=== PATIENT | male | born 1930 | race Caucasian/White ===

== ENCOUNTER 2018-03-19 09:56 | Inpatient (IN) | payer MEDICARE ==
[~2018-03-19] VITALS: Ht 175.3 cm; Wt 79.5 kg
[2018-03-19 10:41] LABS: BASOPHILS ABSOLUTE AUTO 0.05 K/mm3 (0.00-0.23); BASOPHILS PERCENT AUTO 0 % (0-2); EOSINOPHILS ABSOLUTE AUTO 0.04 K/mm3 (0.00-0.68); EOSINOPHILS PERCENT AUTO 0 % (0-6); Hemoglobin 13.4 g/dL (13.5-17.5); IMMATURE GRAN ABSOLUTE AUTO 0.04 K/mm3 (0.00-0.10); IMMATURE GRAN PERCENT AUTO 0 % (0-1); LYMPHOCYTES ABSOLUTE AUTO 0.69 K/mm3 (0.84-5.20); LYMPHOCYTES PERCENT AUTO 6 % (21-46); MONOCYTES ABSOLUTE AUTO 1.11 K/mm3 (0.16-1.47); MONOCYTES PERCENT AUTO 9 % (4-13); Mean Corpuscular HGB 29.5 pg (26.0-34.0); Mean Corpuscular HGB Conc 32.7 g/dL (31.5-36.5); Mean Corpuscular Volume 90 fL (80-100); Mean Platelet Volume 10.1 fL (9.1-12.4); NEUTROPHILS ABSOLUTE AUTO 10.09 K/mm3 (1.96-9.15); NEUTROPHILS PERCENT AUTO 84 % (41-73); Platelet Count 271 K/mm3 (150-400); RDW Standard Deviation 42.7 fL (35.1-46.3); Red Blood Cell Count 4.55 M/mm3 (4.30-5.90); White Blood Cell Count 12.02 K/mm3 (4.00-11.30)
[2018-03-19 10:52] LABS: Albumin, Blood 2.7 g/dL (3.4-5.0); Albumin/Globulin Ratio 0.6 (0.8-1.8); Bilirubin, Total 1.6 mg/dL (0.1-1.0); Bun/Creatinine Ratio 16.9 (12.0-20.0); Calcium, Blood 9.2 mg/dL (8.5-10.1); Creatinine, Blood 1.36 mg/dL (0.60-1.20); Globulin, Blood 4.5 g/dL (2.2-4.0); Potassium, Blood 3.9 mmol/L (3.5-5.5); Total Protein, Blood 7.2 g/dL (6.4-8.2)
[2018-03-19 10:55] LABS: International Normalized Ratio 1.05; Prothrombin Time Results 10.8 Sec (9.7-11.5)
[2018-03-19] MEDS ORDERED: ASPI81CH PO (15:42)
[2018-03-19] MEDS ORDERED: Prinivil10 MG PO (15:42)
[2018-03-19] MEDS ORDERED: ATOR40TA PO (15:42)
--- NOTE | 2018-03-19 15:44 | NUR ---
03/19/18 1544 Ino Pérez History, Chart, Medications and Allergies reviewed before start of procedure.MONITOR INTACT WITH CONTINUOUS PULSE OXIMETRY AND INTERMITTENT BP.3-LEAD EKG REVIEWED WITH PHYSICIAN PRIOR TO START OF PROCEDURE.O2 VIA N/C INTACT THROUGHOUT SEDATION/PROCEDURE. Patient confirms NPO status and agrees with scheduled surgery.PATIENT DETERMINED TO BE ASA APPROPRIATE FOR PROPOFOL SEDATION PRIOR TO START OF PROCEDURE BY DR. BUTTS.
--- NOTE | 2018-03-19 23:42 | NUR ---
INTERVENTION PATIENT AND FAMILY AGREEABLE TO COLONOSCOPY TOMORROW. NG TUBE AND RECTAL TUBE PLACED PER DISCUSSION WITH DR. BUTTS. PATIENT AWARE AND AGREEABLE. TOLERATED PROCEDURES WELL. GOLYTELY BEING INSTILLED VIA NG TUBE. MILD DISCOMFORT NOTED BY PATIENT BUT QUICKLY PASSES. AUSCULTATED AND ASPIRATED TO VERIFY PLACEMENT.
[2018-03-20 05:20] LABS: BASOPHILS ABSOLUTE AUTO 0.04 K/mm3 (0.00-0.23); BASOPHILS PERCENT AUTO 1 % (0-2); EOSINOPHILS ABSOLUTE AUTO 0.01 K/mm3 (0.00-0.68); EOSINOPHILS PERCENT AUTO 0 % (0-6); Hematocrit 43.9 % (37.0-53.0); Hemoglobin 14.4 g/dL (13.5-17.5); IMMATURE GRAN ABSOLUTE AUTO 0.05 K/mm3 (0.00-0.10); IMMATURE GRAN PERCENT AUTO 1 % (0-1); LYMPHOCYTES ABSOLUTE AUTO 0.51 K/mm3 (0.84-5.20); LYMPHOCYTES PERCENT AUTO 8 % (21-46); MONOCYTES ABSOLUTE AUTO 0.07 K/mm3 (0.16-1.47); MONOCYTES PERCENT AUTO 1 % (4-13); Mean Corpuscular HGB 29.6 pg (26.0-34.0); Mean Corpuscular HGB Conc 32.8 g/dL (31.5-36.5); Mean Corpuscular Volume 90 fL (80-100); Mean Platelet Volume 9.9 fL (9.1-12.4); NEUTROPHILS ABSOLUTE AUTO 6.01 K/mm3 (1.96-9.15); NEUTROPHILS PERCENT AUTO 90 % (41-73); Platelet Count 252 K/mm3 (150-400); RDW Coefficient Variation 12.9 % (11.7-14.2); RDW Standard Deviation 42.5 fL (35.1-46.3); Red Blood Cell Count 4.86 M/mm3 (4.30-5.90); White Blood Cell Count 6.69 K/mm3 (4.00-11.30)
--- NOTE | 2018-03-20 05:23 | NUR ---
EVENT PATIENT WITH WHAT APPEARED TO BE ASPIRATION WITH CRACKLES IN THE UPPER AIRWAYS UPON AUSCULTATION AFTER VOMITTING AND HOLDING VOMIT IN MOUTH INSTEAD OF SPITTING IT INTO EMESIS BAG. TRIED TO ORIENT PATIENT MULTIPLE TIMES TO ALLOWING EMESIS TO LEAVE MOUTH BUT WOULD NOT WITHOUT EXCESSIVE PROMPTING. POSITIONED PATIENT WITH PILLOW BEHIND BACK AND AT 90 DEGREES TO MINIMIZE RISK. PATIENT ALSO NOTED TO BE PULLING AT NG TUBE BUT STAYED SECURED IN PLACE. SURGEON REQUESTS THAT NG STAY IN UNTIL SURGERY IN CASE THERE IS EXCESS STOOL ALONG INNER AGUIRRE. CALL TO HOSPITALIST TO REQUEST CHEST XRAY TO VERIFY IF ASPIRATION TOOK PLACE. PATIENT WHEELED TO XRAY FOR 2V CHEST AND UPON RETURN TO UNIT CRACKLES NOTED TO BE RESOLVED. SATURATIONS 83% AND RESPIRATIONS ELEVATED TO 48 UPON RETURN SO STARTED ON O2 AT 4L. STATISTICAL CLERK ADVERTISING ASKED TO RECHECK AFTER 30 MINUTES TO ENSURE IMPROVEMENT ABOVE INITIAL OF SATURATIONS GOING ABOVE 90%. WILL CONTINUE TO MONITOR.
--- NOTE | 2018-03-20 17:35 | NUR ---
SHIFT SUMMARY THE PATIENT PRESENTED THIS AM WITH A VEIW SCORE OF 5. THE PATIENT HADAN ELEVATED RATE IN PULSE, RESP AND TEMP. THE PATIENT'S DOCTOR WAS CALLED ABOUT THE SCORE AND THE CHARGE NURSE WAS INCLUDED IN THE CONVERSATION. THE PATIENT WAS PUT ON Q2 VITALS AND HAD HIS NG AND RECTAL TUBES REMOVED. THE PATIENT HAS IMPROVED THOUGTHOUT THE DAY AND IS NOW WNL ON VITALS AND IS A&O. THE PATIENT IS VISITING WITH HIS FAMILY AT THIS TIME, WILL CONTINUE TO MONITOR.
--- NOTE | 2018-03-21 04:13 | NUR ---
SHIFT SUMMARY PATIENT HAD NO ACUTE CHANGES OBSERVED DURING THE SHIFT. AXOX 3 WITH CONFUSION. VSS/AFEBRILE. PIV REMAINS INTACT. DENIES PAIN, SOB, AND N/V. NPO WITH ICE CHIPS AND WATER ONLY. ON 2L 02 NC. BED IN LOWEST POSITION. CALL LIGHT IN REACH. WILL CONTINUE TO MONITOR UNTIL DAY SHIFT NURSE ASSUMES CARE.
--- NOTE | 2018-03-21 14:02 | NUR ---
HE IS UP ON THE BSC RIGHT NOW. HE TRANSFERS WITH 1 ASSIST. HE WAS UP ONE TIME EARLIER AND PASSED WATERY BROWN STOOL. NO COMPLAINTS. HE IS NPO EXCEPT FOR WATER AND ICE. HE IS NOT SCHEDULED WITH DAY SURGERY. HE HAS BEEN SLEEPING.
[2018-03-21 16:29] LABS: BASOPHILS ABSOLUTE AUTO 0.02 K/mm3 (0.00-0.23); BASOPHILS PERCENT AUTO 0 % (0-2); EOSINOPHILS PERCENT AUTO 0 % (0-6); Hemoglobin 12.8 g/dL (13.5-17.5); IMMATURE GRAN ABSOLUTE AUTO 0.08 K/mm3 (0.00-0.10); IMMATURE GRAN PERCENT AUTO 1 % (0-1); LYMPHOCYTES ABSOLUTE AUTO 0.61 K/mm3 (0.84-5.20); LYMPHOCYTES PERCENT AUTO 5 % (21-46); MONOCYTES ABSOLUTE AUTO 0.91 K/mm3 (0.16-1.47); MONOCYTES PERCENT AUTO 7 % (4-13); Mean Corpuscular HGB 29.8 pg (26.0-34.0); Mean Corpuscular HGB Conc 32.8 g/dL (31.5-36.5); Mean Corpuscular Volume 91 fL (80-100); NEUTROPHILS ABSOLUTE AUTO 11.48 K/mm3 (1.96-9.15); NEUTROPHILS PERCENT AUTO 88 % (41-73); Platelet Count 201 K/mm3 (150-400); RDW Coefficient Variation 13.3 % (11.7-14.2); RDW Standard Deviation 44.2 fL (35.1-46.3); Red Blood Cell Count 4.29 M/mm3 (4.30-5.90)
[2018-03-21 16:56] LABS: Albumin, Blood 2.3 g/dL (3.4-5.0); Albumin/Globulin Ratio 0.6 (0.8-1.8); Bilirubin, Total 0.8 mg/dL (0.1-1.0); Bun/Creatinine Ratio 21.8 (12.0-20.0); Calcium, Blood 8.8 mg/dL (8.5-10.1); Creatinine, Blood 1.88 mg/dL (0.60-1.20); Globulin, Blood 4.1 g/dL (2.2-4.0); Potassium, Blood 3.5 mmol/L (3.5-5.5); Total Protein, Blood 6.4 g/dL (6.4-8.2)
--- NOTE | 2018-03-21 17:43 | NUR ---
HE HAS HAD 2 WATERY BROWN STOOLS TODAY WITHOUT OVERT SIGNS OF BLOOD. HE IS MILDLY CONFUSED. BED ALARM ON. FAMILY WAS HERE THIS AFTERNOON VISITING HIM AND TAKING CARE OF SOME NOTERIZED PAPERWORK WITH HIM. FACE IS FLUSHED. HIGHEST TEMP TODAY WAS 99.8. LAST TEMP 97. ROUNDED THIS AFTERNOON. LABS CHECKED AND 2 IVF'S ORDERED. THEY RUN CONCURRENTLY. NEW IV SITE STARTED. NO RESPIRATORY DISTRESS. NO ABDOMINAL COMPLAINTS. CT ABD IS ORDERED FOR HIM TOO.
--- NOTE | 2018-03-22 04:39 | NUR ---
BASKET GRADER SUMMARY NO ACUTE CHANGES THIS SHIFT. PT ALERT TO SELF AND KNOWS HES AT THE HOSPITAL BUT FORGETS WHAT [place] HE'S IN AND THOUGHT IT [place]. FOLLOWS DIRECTION AND IS PLEASANT. PT REMAINS NPO ASIDE FOR SOME WATER AND ICE CHIPS. PT TO HAVE ABD CT LATER TODAY. DR BUTTS CAME TO ROUND ON PT AT START OF SHIFT BUT NO FURTHER ORDERS GIVEN AT THIS TIME. VSS, WILL CONTINUE TO MONITOR.
[2018-03-22 04:53] LABS: BASOPHILS ABSOLUTE AUTO 0.03 K/mm3 (0.00-0.23); BASOPHILS PERCENT AUTO 0 % (0-2); EOSINOPHILS ABSOLUTE AUTO 0.09 K/mm3 (0.00-0.68); EOSINOPHILS PERCENT AUTO 1 % (0-6); Hematocrit 39.6 % (37.0-53.0); Hemoglobin 12.9 g/dL (13.5-17.5); IMMATURE GRAN ABSOLUTE AUTO 0.06 K/mm3 (0.00-0.10); IMMATURE GRAN PERCENT AUTO 1 % (0-1); LYMPHOCYTES ABSOLUTE AUTO 0.48 K/mm3 (0.84-5.20); LYMPHOCYTES PERCENT AUTO 5 % (21-46); MONOCYTES ABSOLUTE AUTO 0.75 K/mm3 (0.16-1.47); MONOCYTES PERCENT AUTO 7 % (4-13); Mean Corpuscular HGB 29.5 pg (26.0-34.0); Mean Corpuscular HGB Conc 32.6 g/dL (31.5-36.5); Mean Corpuscular Volume 91 fL (80-100); Mean Platelet Volume 10.5 fL (9.1-12.4); NEUTROPHILS ABSOLUTE AUTO 8.71 K/mm3 (1.96-9.15); NEUTROPHILS PERCENT AUTO 86 % (41-73); Platelet Count 178 K/mm3 (150-400); RDW Coefficient Variation 13.2 % (11.7-14.2); RDW Standard Deviation 43.7 fL (35.1-46.3); Red Blood Cell Count 4.37 M/mm3 (4.30-5.90); White Blood Cell Count 10.12 K/mm3 (4.00-11.30)
[2018-03-22 05:06] LABS: Albumin, Blood 2.2 g/dL (3.4-5.0); Albumin/Globulin Ratio 0.5 (0.8-1.8); Bilirubin, Total 0.9 mg/dL (0.1-1.0); Bun/Creatinine Ratio 25.8 (12.0-20.0); Calcium, Blood 8.6 mg/dL (8.5-10.1); Creatinine, Blood 1.55 mg/dL (0.60-1.20); Globulin, Blood 4.2 g/dL (2.2-4.0); Potassium, Blood 3.3 mmol/L (3.5-5.5); Total Protein, Blood 6.4 g/dL (6.4-8.2)
--- NOTE | 2018-03-22 13:02 | NUR ---
I HAVE SPOKEN WITH ON THE TELEPHONE X3 SO FAR TODAY REGARDING HIS CHANGE IN CONDITION, EACH TIME RECEIVING ORDERS. HIS PROBLEMS HAVE BEEN SHAKING CHILLS, FEVER, TACHYCARDIA, IRREGULAR PULSE AND TACHYPNEA. HE HAS RECEIVED 2 TYLENOL PO CRUSHED WHILE THE SPEECH THERAPIST WAS HERE FOR AN EVALUATION. HE IS SAFE FOR CRUSHED MED IN APPLESAUCE ONLY. NO WATER OR ICE CHIPS. DOESN'T WANT HIM TO HAVE ANYTHING SOLID OR APPLESAUCE THOUGH, SO HE WILL BE NPO UNTIL FURTHER NOTICE. THIS EVALUATION WAS DONE WHILE HE WAS FEBRILE. 2 IV ANTIBIOTICS HAVE BEEN GIVEN. 1 DOSE OF TORADOL WAS GIVEN. HE WILL START PPN THIS EVENING. RIGHT NOW CLINIMIX IS INFUSING ALONG WITH NS. AN EKG WAS DONE AND RESULTS (MACHINE INTERPRETATION) CALLED TO . BLOOD CULTURES WERE ALSO DRAWN. HE IS CURRENTLY IN RADIOLOGY FOR HIS ABD CT SCAN. VS ARE IMPROVING SLOWLY. RESPIRATIONS ARE STILL 36/MIN. O2 2L. SATS LOW TO MID 90'S. PULSE 106. HE HAS PVC'S. BP STABLE. LAST TEMP 100.3 ORALLY. HE WAS UNABLE TO FOLLOW SOME INSTRUCTIONS WHEN TEMP WAS 103 BUT BACK TO BASELINE WHEN FEVER BROKE.
--- NOTE | 2018-03-22 16:33 | NUR ---
HE HAS REMAINED AFEBRILE THIS AFTERNOON AND NAPPING. HIS DAUGHTER IS AT THE BEDSIDE. CT IS BASICALLY NEGATIVE. PULSE AND RESP RATE ALSO DECREASED. BP REMAINS STABLE. WHEN PPN STARTS THIS EVENING, I WILL DC THE CLINIMIX AND REDUCE THE NS RATE TO 50MLS/HR PER MD ORDER. TELE NSR WITH PVC'S. HE REMAINS NPO ALSO. HIS INCONTINENT BM THIS MORNING WAS BROWN. NO OVERT SIGNS OF BLOOD.
--- NOTE | 2018-03-23 05:23 | NUR ---
PLASTIC INSTALLER SUMMARY NO ACUTE CHANGES THIS SHIFT. PT AFEBRILE, HR HAS BEEN SR WITH A 1ST DEG BLOCK IN THE 80-90'S THROUGH THE SHIFT. PT SEEMS AT BASE MENTATION, CONFUSED AT TIMES BUT ANSWERS QUESTIONS APPROPRIATELY AND FOLLOWS DIRECTION. FAMILY WAS HERE AT START OF SHIFT AND WAS ASKING ABOUT THE STATUS OF PT'S DIET ORDER AND SPEECH THERAPY EVALUATION. INFORMED FAMILY THAT PT IS NPO AT THIS TIME BUT ST WILL REEVALUATE PT LATER TODAY NOW THAT IS MENTATION HAS IMPROVED. ALSO INFORMED FAMILY THAT PT IS STILL RECIEVING IV NUTRITION EVEN THOUGH HE IS NPO. PT HAS BEEN INCONTINENT AT TIMES THROUGH THE NIGHT AND HAS USED THE URINAL WITH ASSISTANCE ON OCCASION. VSS, WILL CONTINUE TO MONITOR.
[2018-03-23 05:50] LABS: Percent Saturation 13.8 % (20.0-50.0)
[2018-03-23 05:52] LABS: Alanine Aminotransfer (ALT/SGP 32 U/L (12-78); Albumin, Blood 1.9 g/dL (3.4-5.0); Albumin/Globulin Ratio 0.5 (0.8-1.8); Alk Phos 111 U/L (50-136); Anion Gap 7 mmol/L (6-16); Aspartate Aminotrans (AST/SGOT 54 U/L (12-37); Bilirubin, Total 0.6 mg/dL (0.1-1.0); Blood Urea Nitrogen 40 mg/dL (8-24); Bun/Creatinine Ratio 28.8 (12.0-20.0); CO2, Blood 28 mmol/L (21-32); Calcium, Blood 8.4 mg/dL (8.5-10.1); Chloride, Blood 103 mmol/L (98-108); Creatinine, Blood 1.39 mg/dL (0.60-1.20); Globulin, Blood 3.7 g/dL (2.2-4.0); Glomerular Filtration Rate 51 (60-); Glucose, Blood 125 mg/dL (70-99); Magnesium, Blood 2.5 mg/dL (1.6-2.4); Phosphorus, Blood 1.9 mg/dL (2.5-4.9); Potassium, Blood 3.4 mmol/L (3.5-5.5); Sodium, Blood 138 mmol/L (136-145); Total Protein, Blood 5.6 g/dL (6.4-8.2); Triglycerides 131 mg/dL (30-160)
--- NOTE | 2018-03-23 06:41 | NUR ---
NOTICED PT RESPIRATIONS WERE IN THE HIGH AT 32/MINUTE. PT ALSO REPORTED FEELING WARM. ORAL TEMP SHOWED 101.0 DEGREES. CALLED MAGISTRATE ASSISTANT AT APPROXIMATELY 0630 TO SEE IF ANY CHANGES IN HR. STORE DETECTIVE SAID AT APPROXIMATELY 0530 PT HR TOUCHED INTO 130'S THEN DOWN TO 110'S FOR 15-20 MINUTES AND THEN RETURNED TO 80-90'S. THIS RN WAS NOT NOTIFIED OF CHANGE IN HR WHEN IT ACTUALLY OCCURED. GAVE PT RECTAL TYLENOL TO HELP WITH FEVER. WILL REPORT TO DAY RN ASSUMING CARE.
[2018-03-23 09:54] LABS: BASOPHILS ABSOLUTE AUTO 0.02 K/mm3 (0.00-0.23); BASOPHILS PERCENT AUTO 0 % (0-2); EOSINOPHILS ABSOLUTE AUTO 0.09 K/mm3 (0.00-0.68); EOSINOPHILS PERCENT AUTO 1 % (0-6); IMMATURE GRAN ABSOLUTE AUTO 0.05 K/mm3 (0.00-0.10); IMMATURE GRAN PERCENT AUTO 1 % (0-1); LYMPHOCYTES ABSOLUTE AUTO 0.59 K/mm3 (0.84-5.20); LYMPHOCYTES PERCENT AUTO 6 % (21-46); MONOCYTES ABSOLUTE AUTO 0.56 K/mm3 (0.16-1.47); MONOCYTES PERCENT AUTO 6 % (4-13); Mean Corpuscular HGB 29.9 pg (26.0-34.0); Mean Corpuscular HGB Conc 32.4 g/dL (31.5-36.5); Mean Corpuscular Volume 92 fL (80-100); Mean Platelet Volume 11.7 fL (9.1-12.4); NEUTROPHILS ABSOLUTE AUTO 7.98 K/mm3 (1.96-9.15); NEUTROPHILS PERCENT AUTO 86 % (41-73); Platelet Count 145 K/mm3 (150-400); RDW Coefficient Variation 13.2 % (11.7-14.2); RDW Standard Deviation 44.7 fL (35.1-46.3); Red Blood Cell Count 4.02 M/mm3 (4.30-5.90); White Blood Cell Count 9.29 K/mm3 (4.00-11.30)
--- NOTE | 2018-03-23 18:29 | NUR ---
PATIENT A/O TO SELF AND FAMILY AND SOMETIMES PLACE. UP WITH FWW AND 2 ASSIST TO CHAIR. FEVER THIS AM THAT WAS CONTROLLED WITH RECTAL TYLENOL, OTHERWISE VSS. TELE D/C'D. ADVANCED TO MECHANICAL SOFT DIET. PPN RUNNING UNTIL PO INTAKE IMPROVES. NO BOWEL MOVEMENTS THIS SHIFT. DR. BUTTS AT BEDSIDE TODAY AND NO LONGER PLANS TO DO A COLONOSCOPY. FALL PRECAUTIONS IN PLACE. DENIES ANY PAIN. CALM AND COOPERATIVE WITH CARE.
[2018-03-24 05:53] LABS: BASOPHILS ABSOLUTE AUTO 0.03 K/mm3 (0.00-0.23); BASOPHILS PERCENT AUTO 0 % (0-2); EOSINOPHILS ABSOLUTE AUTO 0.21 K/mm3 (0.00-0.68); EOSINOPHILS PERCENT AUTO 2 % (0-6); Hemoglobin 11.7 g/dL (13.5-17.5); IMMATURE GRAN ABSOLUTE AUTO 0.04 K/mm3 (0.00-0.10); IMMATURE GRAN PERCENT AUTO 0 % (0-1); LYMPHOCYTES ABSOLUTE AUTO 0.95 K/mm3 (0.84-5.20); LYMPHOCYTES PERCENT AUTO 9 % (21-46); MONOCYTES ABSOLUTE AUTO 1.33 K/mm3 (0.16-1.47); MONOCYTES PERCENT AUTO 12 % (4-13); Mean Corpuscular HGB 29.4 pg (26.0-34.0); Mean Corpuscular HGB Conc 32.5 g/dL (31.5-36.5); Mean Corpuscular Volume 91 fL (80-100); Mean Platelet Volume 11.1 fL (9.1-12.4); NEUTROPHILS ABSOLUTE AUTO 8.53 K/mm3 (1.96-9.15); NEUTROPHILS PERCENT AUTO 77 % (41-73); Platelet Count 146 K/mm3 (150-400); RDW Coefficient Variation 13.2 % (11.7-14.2); RDW Standard Deviation 43.6 fL (35.1-46.3); Red Blood Cell Count 3.98 M/mm3 (4.30-5.90); White Blood Cell Count 11.09 K/mm3 (4.00-11.30)
[2018-03-24 06:14] LABS: Albumin/Globulin Ratio 0.5 (0.8-1.8); Bilirubin, Total 0.5 mg/dL (0.1-1.0); Bun/Creatinine Ratio 27.5 (12.0-20.0); Calcium, Blood 8.4 mg/dL (8.5-10.1); Creatinine, Blood 1.42 mg/dL (0.60-1.20); Globulin, Blood 3.8 g/dL (2.2-4.0); Magnesium, Blood 2.5 mg/dL (1.6-2.4); Phosphorus, Blood 1.4 mg/dL (2.5-4.9); Potassium, Blood 3.7 mmol/L (3.5-5.5); Total Protein, Blood 5.8 g/dL (6.4-8.2)
--- NOTE | 2018-03-24 06:41 | NUR ---
INSURANCE TERRITORY MANAGER SUMMARY NO ACUTE CHANGES THIS SHIFT. PT AAOX3, PLEASANT AND COOPERATIVE BUT FORGETFUL AT TIMES. USES THE CALL LIGHT APPROPRIATELY FOR ASSISTANCE WITH THE URINAL. PT HAS HAD INCREASED FREQUENCY WHEN URINATING TONIGHT, URINATING 50-100 MLS EVERY HOUR OR TWO. URINE IS DARK GEORGE BUT DOES NOT HAVE A FOUL ODOR. PT INCONTINENT AT TIMES TOO. PT VITALS STABLE THROUGH THE NIGHT UNTIL EARLY THIS AM HAD A SLIGHT TEMP THAT WAS RELIEVED WITH TYLENOL. THIS IS THE THIRD MORNING IN A ROW WHERE PT HAS A FEVER AT THE END OF SHIFT. VSS ASIDE FROM THE BRIEF FEVER. PT HAS BEEN TOLERATING PO NECTAR THICK FLUIDS WELL. WILL CONTINUE TO MONITOR.
--- NOTE | 2018-03-24 16:04 | NUR ---
PT HAD HIGH RESP RATE THAT WAS NOT PRESENT ON INITIALL ASSESSMENT. VITALS SHOW ELEVATED BP TEMP WNL HR WNL. PT DENIES PAIN SAYS HE IS JUST COLD. RESP RATE 42. CALLED ALLAN GOMES NOT BREATHING Tx WILL HELP AT АЛЕКСАНДР TIME. CALLED DR BELTRAN NEW ORDER FOR TORADOL AND A CHEST XRAY.
[2018-03-24 17:18] LABS: Source, Urine Clean Catch
[2018-03-24 17:22] LABS: Appearance, Urine Hazy (Clear); Bilirubin, Urine Neg (Neg); Blood, Urine 1+ (Neg); Color, Urine Yellow (P-Yellow); Glucose Qualitative, Urine Neg (Neg); Ketones, Urine Neg (Neg); Leukocyte Esterase, Urine 3+ (Neg); Nitrite, Urine Neg (Neg); Protein, Urine Neg (Neg); Urobilinogen, Urine NORM (Normal)
[2018-03-24 17:28] LABS: Squamous Epithelial Cells Rare /hpf (Few)
[2018-03-24 17:29] LABS: White Blood Cells, Urine 25-50 /hpf (0-5)
[2018-03-24 17:30] LABS: Bacteria Rare /hpf
--- NOTE | 2018-03-24 18:49 | NUR ---
SHIFT SUMMARY- PT HAD AN ACUTE ONSET OF RESPIRATORY DISTRESS SEE PREVIOUS NOTES FOR DETAILS. MEDICATED WITH LASIX. PT IS IN CONTINENT AND HAS URINATED FREQUENLY SINCE THE ADMINISTRATION OF IV LASIX. PT IS VOIDING UNMEASURED VOIDS NEARLY Q 15-30 MIN SINCE IV LASIX ADMINISTRATION. URINE SAMPLE OBTAINED AND SENT TO THE LAB. VOIDS ARE FREQUENT AND LARGE QUANTITY. PT ALERT AND ORIENTED, HAS THE CALL LIGHT BUT DOES NOT USE IT, HE YELLS OUT FOR STAFF TO HELP HIM WHEN HE NEEDS IT.
--- NOTE | 2018-03-25 01:32 | NUR ---
LOOSE STOOLS PT HAVING LOOSE STOOLS, LIGHT BROWN STOOLS AND HAS BEEN ON ANTIBIOTICS X2 DAYS. SUSPECTED C DIFF. PLACED CALL TO HOSPITALIST, DR THOMAS, WHO DOES NOT ORDER A STOOL SAMPLE TO BE SENT TO LAB FOR C DIFF R/O BECAUSE PT IS NOT HAVING OTHER SYMPTOMS AND IT HAS NOT PROLONGED FOR 72 HOURS.
[2018-03-25 05:48] LABS: BASOPHILS ABSOLUTE AUTO 0.03 K/mm3 (0.00-0.23); BASOPHILS PERCENT AUTO 0 % (0-2); EOSINOPHILS ABSOLUTE AUTO 0.36 K/mm3 (0.00-0.68); EOSINOPHILS PERCENT AUTO 4 % (0-6); Hematocrit 34.8 % (37.0-53.0); Hemoglobin 11.2 g/dL (13.5-17.5); IMMATURE GRAN ABSOLUTE AUTO 0.07 K/mm3 (0.00-0.10); IMMATURE GRAN PERCENT AUTO 1 % (0-1); LYMPHOCYTES ABSOLUTE AUTO 0.98 K/mm3 (0.84-5.20); LYMPHOCYTES PERCENT AUTO 10 % (21-46); MONOCYTES PERCENT AUTO 14 % (4-13); Mean Corpuscular HGB Conc 32.2 g/dL (31.5-36.5); Mean Corpuscular Volume 90 fL (80-100); NEUTROPHILS ABSOLUTE AUTO 6.91 K/mm3 (1.96-9.15); NEUTROPHILS PERCENT AUTO 72 % (41-73); Platelet Count 155 K/mm3 (150-400); RDW Coefficient Variation 13.3 % (11.7-14.2); RDW Standard Deviation 43.9 fL (35.1-46.3); Red Blood Cell Count 3.86 M/mm3 (4.30-5.90); White Blood Cell Count 9.65 K/mm3 (4.00-11.30)
[2018-03-25 06:30] LABS: Albumin, Blood 1.9 g/dL (3.4-5.0); Albumin/Globulin Ratio 0.5 (0.8-1.8); Bilirubin, Total 0.5 mg/dL (0.1-1.0); Bun/Creatinine Ratio 23.6 (12.0-20.0); Calcium, Blood 8.4 mg/dL (8.5-10.1); Creatinine, Blood 1.4 mg/dL (0.60-1.20); Globulin, Blood 3.6 g/dL (2.2-4.0); Magnesium, Blood 2.3 mg/dL (1.6-2.4); Potassium, Blood 3.7 mmol/L (3.5-5.5); Total Protein, Blood 5.5 g/dL (6.4-8.2)
--- NOTE | 2018-03-25 07:06 | NUR ---
SHIFT SUMMARY: AT START OF SHIFT, PT WAS DROWSY, NOT SPEAKING MUCH, AND INCONTINENT. THIS AM, PT WAS MORE ALERT (TO SELF, FAMILY, SURROUNDINGS, FOLLOWING COMMANDS, ANSWER Q'S, TIME/DATE) AND HAVING CONVERSATION, REQUESTING URINAL. FAMILY EXPRESSED CONCERN LAST NIGHT ABOUT NOT RECIEVING ENOUGH COMMUNICATIION. THEY REPORT FEELING "OUT OF THE LOOP." AT THIS TIME, I SAT c DAUGHTER (WHO IS POA) AND PT AND ANSWERED ALL THE DAUGHTER'S QUESTIONS AND RESPONDED TO HER CONCERNS. AT FIRST, FAMILY WAS DEFENSIVE AND HOSTILE BUT A SUCCESSFUL CONVERSATION LED TO EASE THESE FEELINGS INTO POSITIVE ONES. FAMLY REPORTS FEELING MORE "IN THE LOOP". ATTEMPTED TO WEAN PT DOWN TO 1L VIA NC THIS AM, HOWEVER PT COULD NOT TOLERATE AND REPORTED SOB. PT REMAINS ON 2L VIA NC. RR IN LOW 20'S. 1 LIQUID BM, CALLED DOC FOR C DIFF SPECIMEN AND DOC DECLINED, STATING THIS MUST BE OCCURING FOR 72 HRS AND/OR PT MUST HAVE OTHER SYMPTOMS. PT DOES NOT PORTRAY OTHER SYMPTOMS, SUCH CRAMPING. SEE OTHER NOTE. NO OTHER CHANGES TO REPORT THIS SHIFT. WILL CONT TO MONITOR AND PROVIDE CARE UNTIL PRESUMED BY ONCOMING RN.
--- NOTE | 2018-03-25 14:24 | NUR ---
Initial Visit: Palliative consult for AD/POLST and advanced care planning. Pt resting in bed upon arrival. Dr Bledsoe present giving Pt and family report of Pt's condition and plan of care. Pt's daughter Meghan and another family member present. Meghan reports she is Pt's POA. Pt reports he believes in GOD but has no particular maria r. Meghan reports that her and Pt recently moved to [place] from [place] approximately 2 months ago and are living in the same house hold. Meghan reports that Pt's her mother past away approximately 1 month ago here at [facility] from kidney failure. Pt is A&O X3 and is unable to give current year. Listened as Pt and daughter discussed how important and close their family are and how devastating it was to loose Pt's (Diamond). Discussion was made about goals of Pt with his disease process. Discussed Advance Directive and POLST with Pt and Meghan and both agree with the importance of being prepared. Meghan reports that she and other family members will discuss goals with Pt and complete forms. [facility] palliative care will be available if any assistance is needed in completing forms. Andreina expresses concerns about communication between staff and her in keeping her updated with any changes in Pt condition. She also would like a physical therapy evaluation to see if Pt would benefit from physical therapy to come to Pt's home. Spoke with Dr Bledsoe and she reports plan is for an echo and ultrasound. If results of testing are negative Pt may possibly be D/C in a couple of days. Spoke with Pt's nurse and she reports the Pt has shown significant improvement today. PPN has been D/C and Pt is eating on his own. Pt has improved with transfers and ambulation requiring 1 person assist instead of 2 person. Pt is also more alert today. Nurse reports no concerns at this time. Plan: Obtain POLST and Advance Directive when completed. Physical Therapy already working with Pt and will collaberate whether Pt would benefite from home physical therapy. Instructions on Pt's white board for staff to contact Agnes for change in condition and Agnes will call for updates.
--- NOTE | 2018-03-25 15:01 | NUR ---
Echocardiogram completed.
--- NOTE | 2018-03-25 18:20 | NUR ---
SHIFT SUMMARY- PLACED A RECLINER IN THE PT ROOM. PT HAS BEEN UP AND INTO THE CHAIR T/O THE SHIFT FOR ALL MEALS, HE FEEDS HIMSELF AND GOES BACK TO BED SHORTLY AFTER. PT IS A 1P SBA TRANSFER WITH A FWW AND GAIT BELT. PT HAS SOME STRESS INCONTINENCE AND URGENCY. RENAL ULTRASOUND WITH BLADDER WAS DONE AND PT BLADDER ONLY HAD 25ML IN IT, SO PT NOT RETAINING, URINE IS DARK BROWN, PT URINATES FREQUENTLY AND SMALL AMOUNTS 50-100ML PER VOID. PT CAN USE THE URINAL WITH ASSISTANCE. PT IS FAR MORE ALERT TODAY AND TALKATIVE. PT FAMILY WAS IN TODAY AND SPOKE WITH PALLIATIVE CARE RN [place]. THEY ARE CURRENTLY UP TO DATE ON ALL PT CARE NEEDS AND PLANS AND ISSUES. PALLIATIVE CARE WILL BE FOLLOWING. FAMILY IS AWARE IF THEY WANT AN UPDATE THEY NEED TO CALL AND ASK, THEY HAVE REQUESTED THAT THEY BE CALLED IF AN ISSUE ARRISES OR THERE IS A CHANGE IN PT STATUS. PT IS CURRENTLY UP IN THE RECLINER EATING DINNER, CALL LIGHT IN REACH, PT DOES NOT USE IT, HE TENDS TO CALL OUT WHEN STAFF GO BY.
--- NOTE | 2018-03-26 01:03 | NUR ---
PT WAS MILDLY ANXIOUS AND YELLING "HELLO." STATES THAT HE WANTS TO CALL HIS DAUGHTER AND WANTS HER TO COME OVER. PT ALSO STATES " I JUST DON'T FEEL RIGHT." VS TAKEN. BP 152/89, VA 90, TEMP 99.3, 95% ON 2L NC, RR 18. DENIES CHEST PAIN, N/V, AND SOB. NO OTHER COMPLAINTS.
[2018-03-26 05:21] LABS: BASOPHILS ABSOLUTE AUTO 0.03 K/mm3 (0.00-0.23); BASOPHILS PERCENT AUTO 0 % (0-2); EOSINOPHILS ABSOLUTE AUTO 0.24 K/mm3 (0.00-0.68); EOSINOPHILS PERCENT AUTO 2 % (0-6); Hematocrit 38.8 % (37.0-53.0); Hemoglobin 12.7 g/dL (13.5-17.5); IMMATURE GRAN ABSOLUTE AUTO 0.06 K/mm3 (0.00-0.10); IMMATURE GRAN PERCENT AUTO 1 % (0-1); LYMPHOCYTES ABSOLUTE AUTO 1.09 K/mm3 (0.84-5.20); LYMPHOCYTES PERCENT AUTO 11 % (21-46); MONOCYTES ABSOLUTE AUTO 1.12 K/mm3 (0.16-1.47); MONOCYTES PERCENT AUTO 11 % (4-13); Mean Corpuscular HGB 29.1 pg (26.0-34.0); Mean Corpuscular HGB Conc 32.7 g/dL (31.5-36.5); Mean Corpuscular Volume 89 fL (80-100); Mean Platelet Volume 9.9 fL (9.1-12.4); NEUTROPHILS ABSOLUTE AUTO 7.34 K/mm3 (1.96-9.15); NEUTROPHILS PERCENT AUTO 74 % (41-73); Platelet Count 186 K/mm3 (150-400); RDW Coefficient Variation 13.3 % (11.7-14.2); RDW Standard Deviation 43.2 fL (35.1-46.3); Red Blood Cell Count 4.36 M/mm3 (4.30-5.90); White Blood Cell Count 9.88 K/mm3 (4.00-11.30)
[2018-03-26 05:41] LABS: Bun/Creatinine Ratio 21.5 (12.0-20.0); Calcium, Blood 8.6 mg/dL (8.5-10.1); Creatinine, Blood 1.35 mg/dL (0.60-1.20); Potassium, Blood 3.7 mmol/L (3.5-5.5)
--- NOTE | 2018-03-26 07:27 | NUR ---
SHIFT SUMMARY PO ATIVAN AND IV LASIX GIVEN PER DR. LYLES'S ORDER. PT CALMED DOWN AND STATES FEELING BETTER. DAUGHTER CAME AND STAYED WITH PT T/O THE NIGHT. USED URINAL TO VOID AND EPISODES OF INCONTINENCE. TYLENOL GIVEN FOR ELEVATED TEMP. TEMP IMPROVED. REPORT GIVEN TO DAY RN.
--- NOTE | 2018-03-26 17:09 | NUR ---
SHIFT SUMMARY CICI WAS ORIENTED TO SELF AND SOMEWHAT TO SITUATION AND ORIENTED TO FAMILY. DECLINED GETTING OOB FOR BREAKFAST AND LUNCH BUT GOT UP WITH OT FOR DINNER WITH A01. VERY LETHARGIC AND TIRED THIS SHIFT. PER DAUGHTER, HE WAS UP EVERY 5-10 MINUTES ALL NIGHT DUE TO IV LASIX BEING GIVEN OVER NOC SHIFT. CONDOM CATH APPLIED FOR FIRST HALF OF SHIFT, BUT NOT STAYING IN PLACE. PT INCONTINENT AFTER THIS. TOOK PILLS WHOLE IN APPLESAUCE, REQUIRING ASSISTANCE FOR MEALS. ON 2L O2. DENIES PAIN. BUTTOCKS AND COCCYX RED, MEPILEX APPLIED AND Q2 TURNS PERFORMED.
--- NOTE | 2018-03-26 19:22 | NUR ---
TACHYPNEA TODAY AT [address] GUEVARA INFORMING HER THAT PT RR HAS BEEN IN THE 20S ALL DAY, PTS BREATHING IS VERY SHALLOW. LUNGS COARSE. ASKED FOR CXR. DR GUEVARA DOESN'T WANT TO DO CXR AT THIS TIME, PREFERS TO GIVE ANOTHER OT DOSE OF IV LASIX. IV LASIX GIVEN AND CONDOM CATH APPLIED TO HELP INCREASE AMOUNT OF REST PT IS ABLE TO GET
[2018-03-27 05:39] LABS: Bun/Creatinine Ratio 20.3 (12.0-20.0); Calcium, Blood 8.5 mg/dL (8.5-10.1); Creatinine, Blood 1.43 mg/dL (0.60-1.20); Potassium, Blood 4.1 mmol/L (3.5-5.5)
--- NOTE | 2018-03-27 07:29 | NUR ---
SHIFT SUMMARY: PT SLEPT T/O THE NIGHT, REPORTS THIS IS THE MOST SLEEP HE HAS GOTTEN IN A WHILE. PLEASANTLY CONFUSED, FORGETFUL. ON 2L VIA NC, RESPIRATIONS STILL TACHY c NO IMPROVEMENT AFTER LASIX ADMINISTRATION. CONDOM CATH IN PLACE D/T TO FREQUENCY AND INCONTINENCE. OUTPUT OF 1,000ML. PT HAS HAD POOR APPETITE T/O THE DAY, HOWEVER HE DOES DRINK TWO ENSURES THIS SHIFT. Q2H TURNS PERFORMED. SCDs ON FOR DVT PROPHYLAXIS. FAMILY CALLED LAST NIGHT AND IS REQUESTING ANOTHER MEETING c DR. GUEVARA TO UPDATE FAMILY ON PT STATUS, THEY ARE FEELING LEFT OUT OF THE LOOP AGAIN. WILL PASS THIS ON TO DAYSHIFT RN.
[2018-03-27 10:48] LABS: Source, Urine Clean Catch
[2018-03-27 10:59] LABS: Bilirubin, Urine Neg (Neg); Blood, Urine 3+ (Neg); Glucose Qualitative, Urine Neg (Neg); Ketones, Urine 1+ (Neg); Leukocyte Esterase, Urine 3+ (Neg); Nitrite, Urine Neg (Neg); Protein, Urine 2+ (Neg); Specific Gravity, Urine 1.005 (1.003-1.022); Urobilinogen, Urine NORM (Normal)
[2018-03-27 11:17] LABS: Color, Urine Yellow (P-Yellow)
[2018-03-27 11:18] LABS: Appearance, Urine Cloudy (Clear)
[2018-03-27 11:20] LABS: White Blood Cells, Urine TNTC /hpf (0-5)
[2018-03-27 11:21] LABS: Bacteria Mod /hpf; Mucus Mod (0-Heavy); Red Blood Cells, Urine 50-100 /hpf (0-2)
[2018-03-27 11:22] LABS: Squamous Epithelial Cells Few /hpf (Few)
--- NOTE | 2018-03-27 16:19 | NUR ---
SHIFT SUMMARY PT HAS HAD NO ACUTE CHANGES THIS SHIFT, NO COMPLAINTS OF ANY KIND. PT APPEARS TO BE SLEEPING AT THIS TIME, WILL CONT TO MONITOR UNTIL REPORT GIVEN TO RANDEE RN.
[2018-03-28 05:05] LABS: BASOPHILS ABSOLUTE AUTO 0.04 K/mm3 (0.00-0.23); BASOPHILS PERCENT AUTO 0 % (0-2); EOSINOPHILS ABSOLUTE AUTO 0.13 K/mm3 (0.00-0.68); EOSINOPHILS PERCENT AUTO 1 % (0-6); Hematocrit 36.9 % (37.0-53.0); IMMATURE GRAN ABSOLUTE AUTO 0.07 K/mm3 (0.00-0.10); IMMATURE GRAN PERCENT AUTO 1 % (0-1); LYMPHOCYTES ABSOLUTE AUTO 1.32 K/mm3 (0.84-5.20); LYMPHOCYTES PERCENT AUTO 11 % (21-46); MONOCYTES ABSOLUTE AUTO 1.01 K/mm3 (0.16-1.47); MONOCYTES PERCENT AUTO 8 % (4-13); Mean Corpuscular HGB 29.3 pg (26.0-34.0); Mean Corpuscular HGB Conc 32.5 g/dL (31.5-36.5); Mean Corpuscular Volume 90 fL (80-100); Mean Platelet Volume 9.8 fL (9.1-12.4); NEUTROPHILS ABSOLUTE AUTO 9.52 K/mm3 (1.96-9.15); NEUTROPHILS PERCENT AUTO 79 % (41-73); Platelet Count 253 K/mm3 (150-400); RDW Coefficient Variation 13.5 % (11.7-14.2); Red Blood Cell Count 4.09 M/mm3 (4.30-5.90); White Blood Cell Count 12.09 K/mm3 (4.00-11.30)
[2018-03-28 05:35] LABS: Albumin/Globulin Ratio 0.5 (0.8-1.8); Bilirubin, Total 0.9 mg/dL (0.1-1.0); Bun/Creatinine Ratio 23.3 (12.0-20.0); Calcium, Blood 8.5 mg/dL (8.5-10.1); Creatinine, Blood 1.5 mg/dL (0.60-1.20); Globulin, Blood 4.1 g/dL (2.2-4.0); Potassium, Blood 4.2 mmol/L (3.5-5.5); Total Protein, Blood 6.1 g/dL (6.4-8.2)
--- NOTE | 2018-03-28 06:45 | NUR ---
SHIFT SUMMARY PT SLEPT WELL T/O NIGHT. ALERT TO SELF & FAMILY. ANSWERS YES/NO QUESTIONS APPROPRIATELY & FOLLOWS DIRECTIONS. DENIES PAIN, SOB OR N/V. MEDICATED 2X W/TYLENOL PER ORDERS FOR MILD TEMP RANGING 99-100.2. FAMILY REPORTED THAT PT ISN'T EATING WELL USUAL, PT REPORTS THIS IS DUE TO NOT FEELING WELL & BEING TIRED. FAMILY INFORMED ME PT HAS FREQUENCY/INCONT W/URINE & A CONDOM CATH WAS PLACED FOR THE NIGHT, PATENT & DRAINING CLEAR ORANGE URINE. CALL LIGHT IS IN REACH & BED IS IN LOWEST POSITION.
[2018-03-28] MEDS ORDERED: ACET325 PO (11:01)
[2018-03-28] MEDS ORDERED: AMLO5 PO (11:03)
[2018-03-28] MEDS ORDERED: FURO20 PO (11:07)
[2018-03-28] MEDS ORDERED: LEVO750 (11:09)
[2018-03-28] MEDS ORDERED: TAMS.4ER PO (11:10)
--- NOTE | 2018-03-28 18:24 | NUR ---
SHIFT SUMMARY/DC PT HAS HAD NO ACUTE CHANGES THIS SHIFT, NO COMPLAINTS OF ANY KIND. REVIEWED DC INSTRUCTIONS & SCHED APPT W/DAUGHTER WHO VERBALIZED UNDERSTANDING. PT WAS TRANSPORTED VIA W/C TO [place] IN PRIVATE VEHICLE @ 1815.
== END 2018-03-28 18:10 | disposition home or self-care (01) | DRG 377 ==
LOC: ER 09:56 → MEDS 09:57 → ENPENDDIS 03-28 11:13 → MEDS 03-28 18:10
PROVIDERS: Emergency Medicine; Internal Medicine; Internal Medicine Gastroenterology; ADMIT Hospitalist
PROC: 0DJ08ZZ Inspection of Upper Intestinal Tract, Via Natural or Artificial Opening Endoscopic (ICD-10-PCS; principal; 2018-03-19 15:45)
DX: K92.1 Melena (principal); I50.43 Acute on chronic combined systolic (congestive) and diastolic (congestive) heart failure; T17.898A Other foreign object in other parts of respiratory tract causing other injury, initial encounter; E46 Unspecified protein-calorie malnutrition; I11.0 Hypertensive heart disease with heart failure; F03.90 Unspecified dementia, unspecified severity, without behavioral disturbance, psychotic disturbance, mood disturbance, and anxiety; N40.0 Benign prostatic hyperplasia without lower urinary tract symptoms; Z79.82 Long term (current) use of aspirin; R50.9 Fever, unspecified
CPT/HCPCS: 36415; 71045; 71046; 74176; 76770; 80048; 80053; 81001; 82272; 82728; 82947; 83540; 83550; 83605; 83735; 83880; 84100; 84478; 85025; 85610; 85730; 86850; 86900; 86901; 87040; 87077; 87086; 87186; 92526; 92610; 93005; 93010; 93306; 94640; 94760; 94761; 96374; 97110; 97116; 97162; 97530; 99285-25; C9113; G8978; G8979; G8996; G8997; J0696; J1885; J1940; J7030; J7120; J7626

== ENCOUNTER 2018-04-03 09:18 | Observation (INO) | payer MEDICARE ==
[~2018-04-03] VITALS: Ht 172.7 cm; Wt 75.4 kg
[~2018-04-03 09:18] MED LIST: ACET325 PO; AMLO5 PO; ASPI81CH PO; ATOR40TA PO; FURO20 PO; LEVO750; Prinivil10 MG PO; TAMS.4ER PO
[2018-04-03 09:39] LABS: BASOPHILS ABSOLUTE AUTO 0.07 K/mm3 (0.00-0.23); BASOPHILS PERCENT AUTO 1 % (0-2); EOSINOPHILS ABSOLUTE AUTO 0.15 K/mm3 (0.00-0.68); EOSINOPHILS PERCENT AUTO 2 % (0-6); Hemoglobin 13.3 g/dL (13.5-17.5); IMMATURE GRAN ABSOLUTE AUTO 0.04 K/mm3 (0.00-0.10); IMMATURE GRAN PERCENT AUTO 0 % (0-1); LYMPHOCYTES ABSOLUTE AUTO 1.58 K/mm3 (0.84-5.20); LYMPHOCYTES PERCENT AUTO 15 % (21-46); MONOCYTES ABSOLUTE AUTO 0.82 K/mm3 (0.16-1.47); MONOCYTES PERCENT AUTO 8 % (4-13); Mean Corpuscular HGB 29.2 pg (26.0-34.0); Mean Corpuscular HGB Conc 31.7 g/dL (31.5-36.5); Mean Corpuscular Volume 92 fL (80-100); Mean Platelet Volume 9.4 fL (9.1-12.4); NEUTROPHILS ABSOLUTE AUTO 7.58 K/mm3 (1.96-9.15); NEUTROPHILS PERCENT AUTO 74 % (41-73); Platelet Count 479 K/mm3 (150-400); RDW Coefficient Variation 13.7 % (11.7-14.2); RDW Standard Deviation 46.4 fL (35.1-46.3); Red Blood Cell Count 4.56 M/mm3 (4.30-5.90); White Blood Cell Count 10.24 K/mm3 (4.00-11.30)
[2018-04-03 09:50] LABS: International Normalized Ratio 0.99; Prothrombin Time Results 10.2 Sec (9.7-11.5)
[2018-04-03 10:01] LABS: Troponin I 0.144 ng/mL (0.000-0.040)
[2018-04-03 10:03] LABS: Albumin, Blood 2.4 g/dL (3.4-5.0); Albumin/Globulin Ratio 0.5 (0.8-1.8); Bun/Creatinine Ratio 24.1 (12.0-20.0); Calcium, Blood 9.4 mg/dL (8.5-10.1); Creatinine, Blood 1.45 mg/dL (0.60-1.20); Globulin, Blood 5.3 g/dL (2.2-4.0); Potassium, Blood 5.4 mmol/L (3.5-5.5); Total Protein, Blood 7.7 g/dL (6.4-8.2)
--- NOTE | 2018-04-03 19:59 | NUR ---
PT TALKING ON THE PHONE.
--- NOTE | 2018-04-04 04:10 | NUR ---
SHIFT SUMMARY: PLEASANTLY CONFUSED AND COOPERATIVE WITH CARE. NO COMPLAINTS DURING SHIFT. ORTHOSTATIC VITALS DONE ONCE WITH NO COMPLAINTS. SYSTOLIC REMAINED IN LOW ONE HUNDREDS. PT TOLERATED STANDING AT BEDSIDE. CONTINUES TO BE ON 2L VIA NC. RESP E/U. NSR AT 80 WITH PAC'S ON TELE. NS INFUSING AT 75 MLS/HR. SALINE LOCK AFTER THIS BAG. NO ACUTE CHANGES. WILL CONTINUE TO MONITOR AND PROVIDE CARE UNTIL SHIFT REPORT.
[2018-04-04 05:16] LABS: BASOPHILS ABSOLUTE AUTO 0.03 K/mm3 (0.00-0.23); BASOPHILS PERCENT AUTO 0 % (0-2); EOSINOPHILS ABSOLUTE AUTO 0.13 K/mm3 (0.00-0.68); EOSINOPHILS PERCENT AUTO 2 % (0-6); Hematocrit 38.4 % (37.0-53.0); Hemoglobin 12.1 g/dL (13.5-17.5); IMMATURE GRAN ABSOLUTE AUTO 0.04 K/mm3 (0.00-0.10); IMMATURE GRAN PERCENT AUTO 1 % (0-1); LYMPHOCYTES ABSOLUTE AUTO 1.61 K/mm3 (0.84-5.20); LYMPHOCYTES PERCENT AUTO 20 % (21-46); MONOCYTES PERCENT AUTO 9 % (4-13); Mean Corpuscular HGB 29.2 pg (26.0-34.0); Mean Corpuscular HGB Conc 31.5 g/dL (31.5-36.5); Mean Corpuscular Volume 93 fL (80-100); Mean Platelet Volume 9.1 fL (9.1-12.4); NEUTROPHILS ABSOLUTE AUTO 5.52 K/mm3 (1.96-9.15); NEUTROPHILS PERCENT AUTO 69 % (41-73); Platelet Count 450 K/mm3 (150-400); RDW Coefficient Variation 13.7 % (11.7-14.2); RDW Standard Deviation 46.5 fL (35.1-46.3); Red Blood Cell Count 4.14 M/mm3 (4.30-5.90); White Blood Cell Count 8.03 K/mm3 (4.00-11.30)
[2018-04-04 05:50] LABS: Bun/Creatinine Ratio 24.7 (12.0-20.0); Calcium, Blood 9.2 mg/dL (8.5-10.1); Creatinine, Blood 1.62 mg/dL (0.60-1.20); Potassium, Blood 4.1 mmol/L (3.5-5.5)
--- NOTE | 2018-04-04 11:42 | NUR ---
Patient was warm and welcoming as I entered his room. Patient allowed for an immediate therapeutic alliance and expressed the pain of the loss of his of 40 plus years and the pain of her not sharing the depth of her illness until right before she passed. I listened empathically, I provided pastoral and grief counseling and provided prayer. Patient responded with gratitude and showed signs of an elevated mood.
--- NOTE | 2018-04-04 18:38 | NUR ---
SHIFT SUMMARY SBA TO BS; OX3 FORGETFUL/CONFUSED AT TIME; LIVES AT HOME WITH DAUGHTER WHO HAS ADDITIONAL CARETAKERS FROM PT WHEN SHE WORKS. DECREASED APPETITE; SLEPT FOR MUCH OF SHIFT BUT ALSO WORKED WITH OT AND PT COOPERATIVE WITH CARE. POSSIBLE DISCHARGE HOME TOMORROW SYNCOPAL EPISODE WAS LIKELY DUE TO LISINOPRIL DOSING THAT CAUSED PT HYPOTENSION. ORTHOSTATIC NEGATIVE.
[2018-04-05 04:38] LABS: Hematocrit 37.3 % (37.0-53.0); Hemoglobin 11.7 g/dL (13.5-17.5); Mean Corpuscular HGB 29.5 pg (26.0-34.0); Mean Corpuscular HGB Conc 31.4 g/dL (31.5-36.5); Mean Corpuscular Volume 94 fL (80-100); Mean Platelet Volume 8.7 fL (9.1-12.4); Platelet Count 410 K/mm3 (150-400); RDW Coefficient Variation 13.6 % (11.7-14.2); RDW Standard Deviation 46.8 fL (35.1-46.3); Red Blood Cell Count 3.96 M/mm3 (4.30-5.90); White Blood Cell Count 7.37 K/mm3 (4.00-11.30)
[2018-04-05 04:53] LABS: Bun/Creatinine Ratio 23.6 (12.0-20.0); Calcium, Blood 8.9 mg/dL (8.5-10.1); Creatinine, Blood 1.48 mg/dL (0.60-1.20); Potassium, Blood 4.3 mmol/L (3.5-5.5)
--- NOTE | 2018-04-05 04:57 | NUR ---
Pt is alert to self and family. Pt can be forgetful. Did try to climb out of bed x1 during the night. Bed alarm is on for safety. Pt was medicated with tylenol at for sore neck. He has rested well with no further c/o discomfort. Pt has been stable through the night. Family hopes that he will be discharged today. Daughter can pick him up after 1500 if discharged.
--- NOTE | 2018-04-05 09:38 | NUR ---
AM ASSESSMENT PT IS A/O X4, STATE NO DISCOMFORT. STATE NO DIZZINESS/LIGHTHEADEDNESS THIS AM, UP TO CHAIR FOR BF. OCCTHER IN FOR EVAL.
--- NOTE | 2018-04-05 14:32 | NUR ---
TRANSFER OF CARE FROM RODOLFO VIEIRA
[2018-04-05] MEDS ORDERED: SPIR25 PO (17:45)
--- NOTE | 2018-04-05 18:15 | NUR ---
PT DISCHARGED HOME VIA W/C POV WITH DAUGHTER. RX AND REQUIRED CHART DOCUMENTS FAXED TO [facility] BY CARE MANAGEMENT. IV DISCONTINUED INTACT. FAMILY VERBALIZED UNDERSTANDING OF NEW MEDICATIONS AND FOLLOW UP INSTRUCTIONS.
--- NOTE | 2018-04-05 18:18 | NUR ---
Initial Visit: Received consult to see this patient for advance directive/POLST. History of recent GI bleed (discharged about 1 week ago for his admission and treatment), CAD with CABG, CHF, HTN, BPH, CKD III. Pt is alert, oriented, laying in bed. He participates in conversation easily, is able to make needs known. He is able to relay memories, but it appears that he isn't capable of following complex issues. He does remember the events leading up to his hospitalization. Spoke to daughter. Presented POLST form and explained briefly, as she is trying to get the patient dressed. He is discharged today. Pt lives with his daughter and her children. They have a 5 br house in [place] that the family moved into in August of 2017. In January of 2018, their mother . Since then, the family has struggled with sadness and depression - although Meghan states that this is improving at this point. Meghan states that she will review POLST form and booklet 'What you should know about Life Support.' I instructed to take the form with her to his next doctor appointment for signature.
== END 2018-04-05 18:25 | disposition home or self-care (01) ==
LOC: ER 09:18 → MEDS 09:19 → ENPENDDIS 04-05 16:56 → MEDS 04-05 18:25
PROVIDERS: Emergency Medicine; Internal Medicine; ADMIT Internal Medicine
DX: I95.2 Hypotension due to drugs (principal); I13.0 Hypertensive heart and chronic kidney disease with heart failure and stage 1 through stage 4 chronic kidney disease, or unspecified chronic kidney disease; I50.42 Chronic combined systolic (congestive) and diastolic (congestive) heart failure; N18.3 Chronic kidney disease, stage 3 (moderate); N40.0 Benign prostatic hyperplasia without lower urinary tract symptoms; F03.90 Unspecified dementia, unspecified severity, without behavioral disturbance, psychotic disturbance, mood disturbance, and anxiety; F13.10 Sedative, hypnotic or anxiolytic abuse, uncomplicated; R26.89 Other abnormalities of gait and mobility; E78.5 Hyperlipidemia, unspecified; I25.10 Atherosclerotic heart disease of native coronary artery without angina pectoris; Z95.1 Presence of aortocoronary bypass graft; Z74.09 Other reduced mobility; Z79.82 Long term (current) use of aspirin; Z79.899 Other long term (current) drug therapy
CPT/HCPCS: 36415; 71046; 80048; 80053; 83880; 84484; 85025; 85027; 85610; 86850; 86900; 86901; 92610; 93005; 93010; 96360; 96361; 96372; 97110; 97116; 97161; 97165; 97530; 99285-25; G0378; J1650; J7030

== ENCOUNTER 2018-09-15 00:49 | Observation (INO) | payer MEDICARE ==
[~2018-09-15] VITALS: Ht 175.3 cm; Wt 80.3 kg
[~2018-09-15 00:49] MED LIST changes: -AMLO5 PO; +SPIR25 PO; -TAMS.4ER PO
[2018-09-15 01:17] LABS: BASOPHILS ABSOLUTE AUTO 0.04 K/mm3 (0.00-0.23); BASOPHILS PERCENT AUTO 0 % (0-2); EOSINOPHILS PERCENT AUTO 2 % (0-6); Hematocrit 36.4 % (37.0-53.0); Hemoglobin 11.5 g/dL (13.5-17.5); IMMATURE GRAN ABSOLUTE AUTO 0.02 K/mm3 (0.00-0.10); IMMATURE GRAN PERCENT AUTO 0 % (0-1); LYMPHOCYTES ABSOLUTE AUTO 1.49 K/mm3 (0.84-5.20); LYMPHOCYTES PERCENT AUTO 15 % (21-46); MONOCYTES ABSOLUTE AUTO 0.62 K/mm3 (0.16-1.47); MONOCYTES PERCENT AUTO 6 % (4-13); Mean Corpuscular HGB Conc 31.6 g/dL (31.5-36.5); Mean Corpuscular Volume 95 fL (80-100); Mean Platelet Volume 9.1 fL (9.1-12.4); NEUTROPHILS ABSOLUTE AUTO 7.39 K/mm3 (1.96-9.15); NEUTROPHILS PERCENT AUTO 76 % (41-73); Platelet Count 227 K/mm3 (150-400); RDW Coefficient Variation 13.2 % (11.7-14.2); RDW Standard Deviation 46.3 fL (35.1-46.3); Red Blood Cell Count 3.83 M/mm3 (4.30-5.90); White Blood Cell Count 9.76 K/mm3 (4.00-11.30)
[2018-09-15 01:42] LABS: International Normalized Ratio 0.99; Prothrombin Time Results 10.5 Sec (9.7-11.5)
[2018-09-15 01:45] LABS: Albumin, Blood 2.8 g/dL (3.4-5.0); Albumin/Globulin Ratio 0.8 (0.8-1.8); Bilirubin, Total 0.8 mg/dL (0.1-1.0); Bun/Creatinine Ratio 14.3 (12.0-20.0); Calcium, Blood 8.9 mg/dL (8.5-10.1); Creatinine, Blood 1.47 mg/dL (0.60-1.20); Globulin, Blood 3.6 g/dL (2.2-4.0); Potassium, Blood 3.9 mmol/L (3.5-5.5); Total Protein, Blood 6.4 g/dL (6.4-8.2)
[2018-09-15 04:58] LABS: BASOPHILS ABSOLUTE AUTO 0.04 K/mm3 (0.00-0.23); BASOPHILS PERCENT AUTO 0 % (0-2); EOSINOPHILS ABSOLUTE AUTO 0.02 K/mm3 (0.00-0.68); EOSINOPHILS PERCENT AUTO 0 % (0-6); Hematocrit 38.8 % (37.0-53.0); Hemoglobin 12.5 g/dL (13.5-17.5); IMMATURE GRAN ABSOLUTE AUTO 0.04 K/mm3 (0.00-0.10); IMMATURE GRAN PERCENT AUTO 0 % (0-1); LYMPHOCYTES ABSOLUTE AUTO 1.08 K/mm3 (0.84-5.20); LYMPHOCYTES PERCENT AUTO 11 % (21-46); MONOCYTES PERCENT AUTO 3 % (4-13); Mean Corpuscular HGB 29.8 pg (26.0-34.0); Mean Corpuscular HGB Conc 32.2 g/dL (31.5-36.5); Mean Corpuscular Volume 93 fL (80-100); Mean Platelet Volume 9.6 fL (9.1-12.4); NEUTROPHILS ABSOLUTE AUTO 8.47 K/mm3 (1.96-9.15); NEUTROPHILS PERCENT AUTO 85 % (41-73); Platelet Count 195 K/mm3 (150-400); RDW Coefficient Variation 14.2 % (11.7-14.2); Red Blood Cell Count 4.19 M/mm3 (4.30-5.90); White Blood Cell Count 9.95 K/mm3 (4.00-11.30)
--- NOTE | 2018-09-15 05:29 | NUR ---
ADMIT/SUMMARY PT ARRIVED TO ICU 12 AT 0413 VIA ER BED. PT IS AWAKE, ALERT, AND ORIENTED AT TIME OF ARRIVAL. PT DENIES PAIN OR DISCOMFORT. VITAL SIGNS STABLE. PT WITH BRIGHT RED BLOODY STOOL NOTED ON SHEETS AND ATTENDS. PT CLEANED AND NEW ATTENDS PLACED. PT ABLE TO ASSIST WITH REPOSITIONING WELL. NS BOLUS STARTED PER ORDERS. NO FAMILY AT BEDSIDE. PT WITH HX OF DEMENTIA. PT CONFUSED AT TIMES. WILL CONTINUE TO MONITOR AND REPORT OFF TO ONCOMING RN.
--- NOTE | 2018-09-15 07:31 | NUR ---
START OF SHIFT NOTE: RECEIVED REPORT FROM RODOLFO PAINTING, ASSUMED CARE, PATIENT IS AWAKE, ALERT AND ORIENTED TO SELF AND PLACE, BUT VAGUE WITH TIME/DATE AND SITUATION, STATES "I AM EMBARASSED, BUT I DON'T KNOW WHERE I AM THIS MORNING AND I HAVE NO CLOTHES ON", PATIENT WAS DRESSED IN GOWN, SCD'S WERE APPLIED ORDERED, PATIENT IS FORGETFUL, BUT KNOWS EVERYTHING ABOUT HIS EXPERIENCE IN THE [place], PLEASANT, COOPERATIVE, LUNG SOUNDS WITH SOME CRACKLES, PATIENT HAS MIDSTERNAL SCAR FROM BYPASS SURGERY, NSR WITH HR IN 70'S, BLOOD PRESSURES IN 110'S TO 120'S, PATIENT DENIES PAIN, AFEBRILE, BOWEL TONES ARE HYPERACTIVE AND PRESENT IN ALL FOUR QUADRANTS, ATTENDS IN PLACE, CALL LIGHT IN REACH AND EXPLAINED, PATIENT VERBALIZED UNDERSTANDING, WILL CONTINUE TO MONITOR.
--- NOTE | 2018-09-15 08:02 | NUR ---
DR. MAGALLANES CALLED TO GET UPDATE ON PATIENT CONDITION, PROVIDED, ALSO PATIENT MAY HAVE CLEAR LIQUID DIET, WILL COME AND SEE PATIENT LATER TODAY.
--- NOTE | 2018-09-15 08:46 | NUR ---
DR. WINCHESTER IN TO SEE PATIENT, NO NEW ORDERS RECEIVED.
--- NOTE | 2018-09-15 08:48 | NUR ---
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
--- NOTE | 2018-09-15 09:26 | NUR ---
PATIENT CALLED FOR BEDPAN, HAD SMALL MOSTLY LOOSE MAROON COLORED STOOL WITH SOME BROWN PELLETS MIXED IN, PATIENT DENIED PAIN, CALL LIGHT IN REACH, WILL CONTINUE TO MONITOR.
--- NOTE | 2018-09-15 10:39 | NUR ---
DR. MAGALLANES IN TO SEE PATIENT, WILL SPEAK WITH DAUGHTER, NO NEW ORDERS RECEIVED.
[2018-09-15 12:39] LABS: Hemoglobin 10.3 g/dL (13.5-17.5)
--- NOTE | 2018-09-15 13:19 | NUR ---
CALLED DR. MAGALLANES AND NOTIFIED ABOUT LAST BLOOD DRAW H/H 10.3/31.0 DOWN FROM 12.5/38.8 THIS AM, NO NEW ORDERS RECEIVED AT THIS TIME.
--- NOTE | 2018-09-15 15:53 | NUR ---
SPOKE WITH PREM, U/S TECH, WILL DO ORDERED LIVER U/S TODAY.
--- NOTE | 2018-09-15 16:28 | NUR ---
IMAGING IN TO DO ORDERED U/S OF LIVER, PATIENT TOLERATED WELL.
--- NOTE | 2018-09-15 17:48 | NUR ---
SHIFT SUMMARY NOTE: NO EVENTS DURING DAY SHIFT, PATIENT IS RESTING COMFORTABLY, WAS SLEEPING MOST OF THE DAY, HAD ONE SMALL LOOSE MAROON COLORED STOOL CONTAINING BROWN PELLETS, USES URINAL APPROPRIATELY, LUNG SOUNDS REMAIN CLEAR, 2L NC IN PLACE, O2 SATS ARE AT 97 %, NSR WITH HR IN 70'S, BLOOD PRESSURES BETWEEN 110'S TO 120'S, BOWEL TONES ARE PRESENT, PATIENT IS NOW ON A CLEAR LIQUID DIET EXCLUDING RED ITEMS, EATS WITH VERY GOOD APPETITE, NEEDS SOME ASSISTANCE WITH FEEDING, NO PROBLEM SWALLOWING, USES URINAL INDEPENDENTLY, ATTENDS IN PLACE, REPOSITIONS SELF IN BED, U/S OF LIVER WAS DONE ORDERED BY DR. MAGALLANES, NO INVASIVE PROCEDURES PLANNED AFTER DR. MAGALLANES SPOKE WITH PATIENT'S DAUGHTER, SEE HIS NOTE, H/H DROPPED FROM 12.5/38.8 TO 10.3/31.O, DR. MAGALLANES AWARE, NO BLOOD TRANSFUSIONS ORDERED, WILL CONTINUE TO MONITOR H/H OF THIS TIME, PATIENT PULLED OUT 16G PIV ON RAC, NEW 18G PIV WAS STARTED IN RAC, PATIENT TOLERATED WELL, FOR DETAILS SEE SHIFT ASSESSMENT DOCUMENTATION, AND NURSES NOTES, CALL LIGHT IN REACH, WILL CONTINUE TO MONITOR, AND GIVE REPORT TO ONCOMING PUMP AND BLOWER OPERATOR.
--- NOTE | 2018-09-15 19:45 | NUR ---
ASSUMED CARE REPORT RECIEVED. PT IS RESTING QUIETLY IN BED. PT AWAKENS TO VERBAL STIMULI AND IS ALERT AND ORIENTED WHEN AWAKE. PT IS FORGETFUL AT TIMES, OTHERWISE APPROPRIATE. PT DENIES PAIN OR DISCOMFORT. VITAL SIGNS STABLE, PT ON 2L O2 NC. IV'S SALINE LOCKED. PT TOLERATING PO INTAKE WELL. PT WITH ATTENDS IN PLACE AND URINAL AT BEDSIDE. NO NEW SIGNS OF GI BLEEDING AT THIS TIME. WILL COTNINUE TO MONITOR.
[2018-09-15 20:28] LABS: Hematocrit 30.2 % (37.0-53.0)
[2018-09-16 03:25] LABS: BASOPHILS ABSOLUTE AUTO 0.02 K/mm3 (0.00-0.23); BASOPHILS PERCENT AUTO 0 % (0-2); EOSINOPHILS ABSOLUTE AUTO 0.37 K/mm3 (0.00-0.68); EOSINOPHILS PERCENT AUTO 5 % (0-6); Hematocrit 29.2 % (37.0-53.0); Hemoglobin 9.4 g/dL (13.5-17.5); IMMATURE GRAN ABSOLUTE AUTO 0.03 K/mm3 (0.00-0.10); IMMATURE GRAN PERCENT AUTO 0 % (0-1); LYMPHOCYTES ABSOLUTE AUTO 2.06 K/mm3 (0.84-5.20); LYMPHOCYTES PERCENT AUTO 29 % (21-46); MONOCYTES ABSOLUTE AUTO 0.58 K/mm3 (0.16-1.47); MONOCYTES PERCENT AUTO 8 % (4-13); Mean Corpuscular HGB 29.4 pg (26.0-34.0); Mean Corpuscular HGB Conc 32.2 g/dL (31.5-36.5); Mean Corpuscular Volume 91 fL (80-100); Mean Platelet Volume 9.6 fL (9.1-12.4); NEUTROPHILS ABSOLUTE AUTO 4.02 K/mm3 (1.96-9.15); NEUTROPHILS PERCENT AUTO 57 % (41-73); Platelet Count 200 K/mm3 (150-400); RDW Coefficient Variation 14.6 % (11.7-14.2); RDW Standard Deviation 48.3 fL (35.1-46.3); White Blood Cell Count 7.08 K/mm3 (4.00-11.30)
[2018-09-16 03:42] LABS: Albumin, Blood 2.3 g/dL (3.4-5.0); Albumin/Globulin Ratio 0.8 (0.8-1.8); Bilirubin, Total 0.8 mg/dL (0.1-1.0); Bun/Creatinine Ratio 17.1 (12.0-20.0); Calcium, Blood 8.4 mg/dL (8.5-10.1); Creatinine, Blood 1.29 mg/dL (0.60-1.20); Globulin, Blood 2.8 g/dL (2.2-4.0); Potassium, Blood 4.4 mmol/L (3.5-5.5); Total Protein, Blood 5.1 g/dL (6.4-8.2)
--- NOTE | 2018-09-16 06:07 | NUR ---
SHIFT SUMMARY PT DID WELL THIS SHIFT. PT AWAKE FOR MORE OF THE NIGHT. PT ALERT AND ORIENTED WITH PERIODS OF FORGETFULNESS. PT HAS DENIED PAIN OR DISCOMFORT. VITAL SIGNS HAVE REMAINED STABLE. PT ON 2L O2 NC. PT TAKING PO INTAKE WELL AND HAS GOOD APPETITE. PT USING URINAL TO VOID WELL. PT WITH TWO SOFT BM'S WITH SMALL AMOUNTS OF OLD RESIDUAL BLOOD NOTED. NO ACUTE BLEEDING NOTED. PT WITH INTERMITTENT ECG RHYTHM CHANGES NOTED ON MONITOR THIS AM, EKG DONE. PT DENIES CHEST PAIN OR PRESSURE. WILL CONTINUE TO MONITOR AND REPORT OFF TO ONCOMING RN. SEE RHYTHM STRIPS IN CHART FOR MORE INFO.
--- NOTE | 2018-09-16 07:31 | NUR ---
START OF SHIFT NOTE: RECEIVED REPORT FROM GARIMA EVANS RN, ASSUMED CARE, PATIENT IS SLEEPING, AWAKES EASILY, ALERT TO PLACE, SELF, SITUATION, VAGUE ABOUT DATE/TIME, SLIGHTLY FORGETFUL, LUNG SOUNDS ARE CLEAR, NSR, HR 70'S, BLOOD PRESSURES 110'S TO 120'S, BOWEL TONES PRESENT IN ALL FOUR QUADRANTS, PATIENT DENIES ABDOMINAL PAIN, ABDOMEN IS NON DISTENDED, SOFT AND NON TENDER ON PALPATION, USES URINAL TO VOID, URINE IS CLEAR AND YELLOW, SCD'S IN PLACE, PEDAL PULSES ARE STRONG AND PALPATED EASILY, 18G IN RAC FLUSHES WELL, 16 G IN LAC FLUSHES WELL ALSO, PATIENT'S SKIN IS C/D/I, PATIENT IS AFEBRILE, CALL LIGHT IN REACH, WILL CONTINUE TO MONITOR.
--- NOTE | 2018-09-16 09:36 | NUR ---
DR. GUEVARA IN TO SEE PATIENT, HOME MEDICATIONS REORDERED, PATIENT WAS MADE MEDICAL WITH TELE, AND PT ORDERED TO ASSESS STRENGTH.
--- NOTE | 2018-09-16 09:41 | NUR ---
PATIENT ATE BREAKFAST WELL WITH SOME ASSISTANCE, RECEIVED BEDBATH, GOWN CHANGE, POWDER AND CREAM WITH BACKRUB APPLIED, PATIENT TOLERATED WELL, CALL LIGHT IN REACH, WILL CONTINUE TO MONITOR.
[2018-09-16 10:06] LABS: Percent Saturation 41.9 % (20.0-50.0)
--- NOTE | 2018-09-16 10:10 | NUR ---
REPORT CALLED TO RODOLFO PATEL, ON MEDICAL FLOOR, WILL CALL WHEN ROOM IS READY AND CLEAN, WILL MOVE PATIENT THEN.
--- NOTE | 2018-09-16 11:42 | NUR ---
PATIENT MOVED TO ROOM 341 BY NIKIA HOLLINS, VIA BED.
--- NOTE | 2018-09-16 12:31 | NUR ---
ICU TRANSFER- PT ARRIVED TO ROOM 341 VIA BED AT 1145. PT A/O TO PERSON AND HOSPITAL, PT REPORTS HE THOUGHT HE WAS IN [facility]. PT DENIES ANY PAIN OR OTHER COMPLAINTS. LS CLEAR, ON RA. HRR. ABD NORMAL AND NONTENDER. IV X2 TO LEFT AND RIGHT AC-SL. PT ORIENTED TO ROOM AND CALL SYSTEM. CALL LIGHT IN REACH, BED ALARM ON. ORDERS RECEIVED FOR 1 UNIT PRBC, WILL START.
--- NOTE | 2018-09-16 17:10 | NUR ---
SHIFT SUMMARY- ICU TRANSFER THIS AM. PT A/O TO PERSON AND PLACE. PT DENIES ANY COMPLAINTS SINCE ARRIVAL TO FLOOR. 1 UNIT PRBC COMPLETED TODAY. LS CLEAR, ON RA. HRR. NO BLEEDING NOTED. PT TOLERATING PO. ABD NONTENDER. PT AMBULATED IN GRAY WITH PHYSICAL THERAPY WITH SBA AND FWW. POSS D/C HOME TOMORROW. NO OTHER ACUTE CHANGES THIS SHIFT.
--- NOTE | 2018-09-16 18:39 | NUR ---
PT UP TO BATHROOM, MEDIUM SOFT BROWN BM. NO BLOOD NOTED PER LIQUOR GALLERY OPERATOR.
[2018-09-17 05:06] LABS: BASOPHILS ABSOLUTE AUTO 0.04 K/mm3 (0.00-0.23); BASOPHILS PERCENT AUTO 0 % (0-2); EOSINOPHILS ABSOLUTE AUTO 0.71 K/mm3 (0.00-0.68); EOSINOPHILS PERCENT AUTO 8 % (0-6); Hematocrit 30.1 % (37.0-53.0); Hemoglobin 9.7 g/dL (13.5-17.5); IMMATURE GRAN ABSOLUTE AUTO 0.04 K/mm3 (0.00-0.10); IMMATURE GRAN PERCENT AUTO 0 % (0-1); LYMPHOCYTES ABSOLUTE AUTO 2.51 K/mm3 (0.84-5.20); LYMPHOCYTES PERCENT AUTO 28 % (21-46); MONOCYTES ABSOLUTE AUTO 0.85 K/mm3 (0.16-1.47); MONOCYTES PERCENT AUTO 10 % (4-13); Mean Corpuscular HGB 29.4 pg (26.0-34.0); Mean Corpuscular HGB Conc 32.2 g/dL (31.5-36.5); Mean Corpuscular Volume 91 fL (80-100); Mean Platelet Volume 9.2 fL (9.1-12.4); NEUTROPHILS ABSOLUTE AUTO 4.83 K/mm3 (1.96-9.15); NEUTROPHILS PERCENT AUTO 54 % (41-73); Platelet Count 205 K/mm3 (150-400); RDW Coefficient Variation 14.5 % (11.7-14.2); RDW Standard Deviation 47.8 fL (35.1-46.3); White Blood Cell Count 8.98 K/mm3 (4.00-11.30)
[2018-09-17 05:23] LABS: Albumin, Blood 2.5 g/dL (3.4-5.0); Albumin/Globulin Ratio 0.9 (0.8-1.8); Bilirubin, Total 0.9 mg/dL (0.1-1.0); Bun/Creatinine Ratio 13.4 (12.0-20.0); Calcium, Blood 8.7 mg/dL (8.5-10.1); Creatinine, Blood 1.42 mg/dL (0.60-1.20); Globulin, Blood 2.9 g/dL (2.2-4.0); Potassium, Blood 4.4 mmol/L (3.5-5.5); Total Protein, Blood 5.4 g/dL (6.4-8.2)
--- NOTE | 2018-09-17 07:47 | NUR ---
SHIFT SUMMARY NO ACUTE CHANGES THIS SHIFT. AOX3, FORGETFUL W/HX DEMENTIA. VSS. DENIES PAIN, N/V/D. NO ACTIVE BLEEDING. REPORTS PASSING GAS. SBA W/FWW TO RESTROOM. CALL LIGHT IN REACH & BED ALARM PLACED BECAUSE PT FORGETFUL TO CALL FOR HELP.
--- NOTE | 2018-09-17 08:33 | NUR ---
WILL D/C IV WITH REDNESS NOTED/FIELD START
--- NOTE | 2018-09-17 13:39 | NUR ---
A/O AND PLEASANT THIS MORNING. ANSWERING QUESTIONS APPROPRIATELY. DENIES BLEEDING FROM RECTUM OR PAIN. UP WITH S/B ASSIST AND WALKER. PLAN TO DISCHARGE TO HOME THIS AFTERNOON WHEN DAUGHTER OFF WORK. PT APPEARS ANXIOUS TO GO HOME. HIS DAUGHTER AN EXCELLENT SUPPORT PERSON FOR HIM.
== END 2018-09-17 19:40 | disposition home or self-care (01) ==
LOC: ER 00:49 → ICUW 00:50 → MEDS 00:50 → ICUW 00:50 → MEDS 09-16 11:38
PROVIDERS: Emergency Medicine; Family Medicine; Internal Medicine; Physician Assistant; ADMIT Hospitalist
DX: K92.2 Gastrointestinal hemorrhage, unspecified (principal); I13.0 Hypertensive heart and chronic kidney disease with heart failure and stage 1 through stage 4 chronic kidney disease, or unspecified chronic kidney disease; I50.42 Chronic combined systolic (congestive) and diastolic (congestive) heart failure; N18.3 Chronic kidney disease, stage 3 (moderate); R53.1 Weakness; R57.8 Other shock; R74.8 Abnormal levels of other serum enzymes; F03.90 Unspecified dementia, unspecified severity, without behavioral disturbance, psychotic disturbance, mood disturbance, and anxiety
CPT/HCPCS: 36415; 36430; 76705; 80053; 82728; 83540; 83550; 85014; 85018; 85025; 85610; 85730; 86850; 86900; 86901; 86923; 93005; 93010; 96361; 96374; 97110; 97161; 99285-25; C9113; G0378; J7030; P9016

== ENCOUNTER 2018-11-16 04:52 | Observation (INO) | payer MEDICARE ==
[~2018-11-16] VITALS: Ht 172.7 cm; Wt 87.0 kg
[2018-11-16 05:27] LABS: Source, Urine Clean Catch
[2018-11-16 05:38] LABS: Bilirubin, Urine Neg (Neg); Blood, Urine 1+ (Neg); Glucose Qualitative, Urine Neg (Neg); Ketones, Urine 1+ (Neg); Leukocyte Esterase, Urine Neg (Neg); Nitrite, Urine Neg (Neg); Protein, Urine 3+ (Neg); Specific Gravity, Urine 1.025 (1.003-1.022); Urobilinogen, Urine NORM (Normal)
[2018-11-16 05:46] LABS: Appearance, Urine Clear (Clear); Color, Urine Yellow (P-Yellow)
[2018-11-16 05:48] LABS: Bacteria Few /hpf; Mucus Light ({null, 0-Heavy}); Red Blood Cells, Urine 0-2 /hpf (0-2); Squamous Epithelial Cells Not Seen /hpf (Few)
[2018-11-16 05:49] LABS: Hyaline Casts 0-2 /lpf (0-2)
[2018-11-16 06:12] LABS: BASOPHILS ABSOLUTE AUTO 0.04 K/mm3 (0.00-0.23); BASOPHILS PERCENT AUTO 0 % (0-2); EOSINOPHILS ABSOLUTE AUTO 0.01 K/mm3 (0.00-0.68); EOSINOPHILS PERCENT AUTO 0 % (0-6); Hematocrit 37.6 % (37.0-53.0); Hemoglobin 11.6 g/dL (13.5-17.5); IMMATURE GRAN ABSOLUTE AUTO 0.02 K/mm3 (0.00-0.10); IMMATURE GRAN PERCENT AUTO 0 % (0-1); LYMPHOCYTES ABSOLUTE AUTO 0.82 K/mm3 (0.84-5.20); LYMPHOCYTES PERCENT AUTO 8 % (21-46); MONOCYTES ABSOLUTE AUTO 0.42 K/mm3 (0.16-1.47); MONOCYTES PERCENT AUTO 4 % (4-13); Mean Corpuscular HGB 27.4 pg (26.0-34.0); Mean Corpuscular HGB Conc 30.9 g/dL (31.5-36.5); Mean Corpuscular Volume 89 fL (80-100); Mean Platelet Volume 9.7 fL (9.1-12.4); NEUTROPHILS ABSOLUTE AUTO 8.82 K/mm3 (1.96-9.15); NEUTROPHILS PERCENT AUTO 87 % (41-73); Platelet Count 269 K/mm3 (150-400); RDW Coefficient Variation 13.4 % (11.7-14.2); RDW Standard Deviation 43.4 fL (35.1-46.3); Red Blood Cell Count 4.24 M/mm3 (4.30-5.90); White Blood Cell Count 10.13 K/mm3 (4.00-11.30)
[2018-11-16 06:33] LABS: Alanine Aminotransfer (ALT/SGP 13 U/L (12-78); Albumin, Blood 3.6 g/dL (3.4-5.0); Albumin/Globulin Ratio 0.9 (0.8-1.8); Alk Phos 79 U/L (50-136); Anion Gap 8 mmol/L (6-16); Aspartate Aminotrans (AST/SGOT 11 U/L (12-37); Bilirubin, Total 0.6 mg/dL (0.1-1.0); Blood Urea Nitrogen 22 mg/dL (8-24); Bun/Creatinine Ratio 14.8 (12.0-20.0); CO2, Blood 26 mmol/L (21-32); Calcium, Blood 9.5 mg/dL (8.5-10.1); Chloride, Blood 109 mmol/L (98-108); Creatinine, Blood 1.49 mg/dL (0.60-1.20); Globulin, Blood 4.2 g/dL (2.2-4.0); Glomerular Filtration Rate 47 (60-); Glucose, Blood 150 mg/dL (70-99); Potassium, Blood 4.2 mmol/L (3.5-5.5); Sodium, Blood 143 mmol/L (136-145); Total Protein, Blood 7.8 g/dL (6.4-8.2); Troponin I <0.015 ng/mL (0.000-0.040)
[2018-11-16] MEDS ORDERED: Amlodipine Bes2.5 MG PO (13:39)
[2018-11-16] MEDS ORDERED: PANT20 PO (13:39)
[2018-11-16] MEDS ORDERED: TAMS.4ER PO (13:39)
[2018-11-16] MEDS ORDERED: ATHLETE'S FOO35.4 GM TOP (13:40)
--- NOTE | 2018-11-16 15:07 | NUR ---
History, Chart, Medications and Allergies reviewed before start of procedure.Lungs clear T/O to Auscultation. Patient confirms NPO status and agrees with scheduled surgery. RECIEVED PHONE CALL FROM DAUGHTER, AFTER VERIFING DAUGHTER WITH PATIENT RN TALKED WITH DAUGHTER. DAUGHTER STATES VERY UPSET BECAUSE SHE IS THE POA AND WAS NOT NOTIFIED OF HER FATHER GOING TO SURGERY. RN APPOLOGIZED AND EXPLAINED WHAT WAS GOING ON, OFFERED TO LET DAUGHTER TALK WITH DOCTOR WHICH SHE DECLINED BUT DID AGREE TO TALKING TO THE PATIENT HER DAD. AFTER SHE TALKED WITH HER DAD RN ASKED IF SHE HAD ANY MORE QUESTIONS AND OR IF SHE FELT BETTER AFTER TALKING TO HER DAD AND IF SHE HAD CHANGED HER MIND ABOUT TALKING TO DOCTOR. SHE REPORTS SHE FELT MUCH BETTER AND DENIED NEEDING TO TALK WITH DOCTOR. RN GAVE HER UNIT PHONE NUMBER AND INFORMED HER WHERE HER DAD IS IN THE HOSPITAL FOR SURGERY AND THE ROOM HE WILL GO TO AFTER SURGERY ROOM 305.
--- NOTE | 2018-11-16 19:16 | NUR ---
shift summary- PT ADMITTED THROUGH THE ED. RECIEVED REPORT FROM ED RN SHANNON. 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 PT ARRIVED ON MEDICAL FLOOR AND WAS IMMEDIATELY TAKEN TO THE OR FOR THE REPAIR. PT RETURNED TO MEDICAL FLOOR AND POST OP VITALS WERE STARTED. BP'S WERE INCREASING WITH EACH SET OF VITALS, CALLED DR GU FOR ORDERS, DC'D IVF (NOT YET STARTED) OT DOSE OF AMLPODIPINE 2.5 GIVEN PO OK FOR PT TO HAVE FOOD NOW ORDER CHANGED IN ORDER MANAGEMENT. PT ALERT AND ORIENTED WITH SOME FORGETFULLNESS. PT HAS Dx DEMENTIA; LIVES AT HOME WITH HIS DAUGHTER WHO DOES ALL FINANCES, MEDICAL APPOINTMENTS AND MEDICATION MANAGMENT FOR THE PT (PER PT VERBAL STATEMENT). PT SITTING UP IN BED EATING DINNER WITH HIS CALL LIGHT IN REACH. PT USES THE URINAL INDEPENDENTLY IN BED VERY FREQUENTLY IN SMALL AMOUNTS.
[2018-11-17 04:48] LABS: Hematocrit 39.2 % (37.0-53.0); Hemoglobin 12.1 g/dL (13.5-17.5); Mean Corpuscular HGB 27.4 pg (26.0-34.0); Mean Corpuscular HGB Conc 30.9 g/dL (31.5-36.5); Mean Corpuscular Volume 89 fL (80-100); Mean Platelet Volume 10.2 fL (9.1-12.4); Platelet Count 241 K/mm3 (150-400); RDW Coefficient Variation 13.2 % (11.7-14.2); RDW Standard Deviation 43.4 fL (35.1-46.3); Red Blood Cell Count 4.42 M/mm3 (4.30-5.90); White Blood Cell Count 14.46 K/mm3 (4.00-11.30)
--- NOTE | 2018-11-17 04:49 | NUR ---
SHIFT SUMMARY PT HAD SOME DISCOMFOR AT BEGINNING OF SHIFT. PT TX PER EMAR WITH GOOD RELIEF. PT HAD NO OTHER ISSUES NOTED. PT CURRENTLY SLEEPING IN NO DISTRESS, CALL LIGHT IN REACH.
[2018-11-17 05:04] LABS: Bun/Creatinine Ratio 14.3 (12.0-20.0); Calcium, Blood 9.7 mg/dL (8.5-10.1); Creatinine, Blood 1.33 mg/dL (0.60-1.20); Potassium, Blood 4.5 mmol/L (3.5-5.5)
--- NOTE | 2018-11-17 18:52 | NUR ---
SHIFT SUMMARY- PT BT ARE VERY HYPOACTIVE. PT HAS BEEN EATING ALL SHIFT WITH NO NAUSEA OR C/O PAIN UNTIL AMBULATING TO THE BATHROOM THIS EVENING, MEDICATED PER EMAR. PAIN IS IN THE SURGICAL SITE. BANDAGE IS C/D/I. PT HAS A 18G IV SL IN THE LEFT AC. PT ALERT AND CALLS SOMETIMES. PT CAN BE VERY CONFUSED HAS A Dx OF DEMENTIA. PT HAS BEEN MORE AWAKE T/O THE DAY. DISCHARGE IS PENDING A BOWEL MOVEMENT, PROVIDED WITH PRUNE JUICE/APPLE JUICE/BUTTER COCKTAIL, NO RESULT. PT STATED PAIN 5/10 AFTER PAIN MEDS WERE GIVEN.
--- NOTE | 2018-11-18 04:37 | NUR ---
SHIFT SUMMARY PT HAD NO COMPLAINTS OR ISSUES NOTED. PT DID NOT HAVE A BM AND DENIES FLATUS. PT HAS SLEPT WELL T/O SHIFT. PT CURRENTLYSLEEPING AND HAS NOT REQUIRED OXYGEN. CALL LIGHT IN REACH.
--- NOTE | 2018-11-18 07:44 | NUR ---
ASSUMED CARE OF PT- PT ALERT SITTING IN BED WITH THE CALL LIGHT IN REACH. PT DENIES PAIN AT THIS TIME, TEMP IS SLIGHTLY ELEVATED AT 100.3 VIA ORAL THERMOMETER THIS MORNING. PT DOES NOT HAVE TYLENOL ORDERED. REMOVED EXTRA BLANKETS AND TURNED DOWN THE ROOM TEMP. PT STATES HE DOES NOT FEEL PARTICULARLY HOT OR COLD AT THIS TIME. PT O2 SATS WERE IN THE HIGH 80'S THIS MORNING O2 NC REPLACED ON PT AND SATS CAME UP TO HIGH 90'S. PT HAS DEMENTIA AND CAN BECOME CONFUSED EASILY, BED ALARM ON FOR SAFETY. PT WENT TO THE BATHROOM YESTERDAY AND URINATED, WHEN STAFF GOT HIM BACK TO BED THE PT STATED HE SHOULD PROBABLY PEE BEFORE HE LAYS DOWN. WHEN STAFF POIUNTED OUT HE JUST HAD HIS RESPONSE WAS "OH, OK" AND THEN HE LAYED DOWN. URINAL WAS PLACED IN THE BATHROOM AND PT INSTRUCTED TO CALL FOR ASSISTANCE. PT SCROTUM IS BRUISED POSSIBLY D/T THE CONSTANT PLACEMENT OF THE URINAL. STAFF WILL ASSIST WITH THE URINAL TO TRY TO PREVENT THIS.
[2018-11-18 09:45] LABS: BASOPHILS ABSOLUTE AUTO 0.06 K/mm3 (0.00-0.23); BASOPHILS PERCENT AUTO 1 % (0-2); EOSINOPHILS ABSOLUTE AUTO 0.11 K/mm3 (0.00-0.68); EOSINOPHILS PERCENT AUTO 1 % (0-6); Hematocrit 33.7 % (37.0-53.0); Hemoglobin 10.2 g/dL (13.5-17.5); IMMATURE GRAN ABSOLUTE AUTO 0.04 K/mm3 (0.00-0.10); IMMATURE GRAN PERCENT AUTO 0 % (0-1); LYMPHOCYTES ABSOLUTE AUTO 1.76 K/mm3 (0.84-5.20); LYMPHOCYTES PERCENT AUTO 17 % (21-46); MONOCYTES ABSOLUTE AUTO 1.46 K/mm3 (0.16-1.47); MONOCYTES PERCENT AUTO 14 % (4-13); Mean Corpuscular HGB 26.9 pg (26.0-34.0); Mean Corpuscular HGB Conc 30.3 g/dL (31.5-36.5); Mean Corpuscular Volume 89 fL (80-100); Mean Platelet Volume 9.8 fL (9.1-12.4); NEUTROPHILS ABSOLUTE AUTO 6.76 K/mm3 (1.96-9.15); NEUTROPHILS PERCENT AUTO 66 % (41-73); Platelet Count 217 K/mm3 (150-400); RDW Coefficient Variation 13.5 % (11.7-14.2); RDW Standard Deviation 44.1 fL (35.1-46.3); Red Blood Cell Count 3.79 M/mm3 (4.30-5.90); White Blood Cell Count 10.19 K/mm3 (4.00-11.30)
[2018-11-18 10:02] LABS: Albumin, Blood 2.9 g/dL (3.4-5.0); Anion Gap 5 mmol/L (6-16); Blood Urea Nitrogen 24 mg/dL (8-24); Bun/Creatinine Ratio 14.7 (12.0-20.0); CO2, Blood 30 mmol/L (21-32); Calcium, Blood 9.3 mg/dL (8.5-10.1); Chloride, Blood 104 mmol/L (98-108); Creatinine, Blood 1.63 mg/dL (0.60-1.20); Glomerular Filtration Rate 43 (60-); Glucose, Blood 113 mg/dL (70-99); Phosphorus, Blood 2.6 mg/dL (2.5-4.9); Potassium, Blood 4.5 mmol/L (3.5-5.5); Sodium, Blood 139 mmol/L (136-145)
--- NOTE | 2018-11-18 11:49 | NUR ---
SPOKE TO DR KRISHNAMURTHY ABOUT BOWEL CARE MEDICATIONS FOR THIS PT. DR KRISHNAMURTHY STATED HE WILL PUT IN THE ORDERS A LITTLE LATER TODAY FOR BOWEL PROTOCOL.
--- NOTE | 2018-11-18 19:00 | NUR ---
SHIFT SUMMARY- PT ALERT, NOT ORIENTED. PT URINAL IS OUT OF REACH TO PREVENT INJURY TO THE PT. PT TENDS TO PLACE THE URINAL CONSTANTLY AND OFTEN SLEEP WITH IT IN PLACE. PT HAS BEEN MEDICATED FOR PAIN ONCE THIS SHIFT. BED ALARM ON FOR SAFETY. NO ACUTE CHANGES, ATTEMPTED MILK OF MAG AND MIRALAX WITH NO RESULT. NEXT MED IS A SUPPOSITORY ORDERED PRN AT BEDTIME. WILL PASS ON TO MANAGER GOVERNMENT IN REPORT.
--- NOTE | 2018-11-19 06:16 | NUR ---
SHIFT SUMMARY HAS SLEPT T/O SHIFT. PT NEEDS TO STAND TO GET COMPLETE EMPTYING WHILE VOIDING. PT CONTINES TO HAVE DISCOMFORT AT SX SITE. PT STILL HAS NOT HAD A BM DESPITE MOM YESTERDAY AND SUPPOSITIORY AT BEDTIME. PT IS CURRENTLY AWAKE BREATHING EASY. CALL LIGHT AND BED ALARM ON.
--- NOTE | 2018-11-19 11:55 | NUR ---
Patient is lying in bed and alert. Patient immediately wants to show me his badges from his procedure and tells me that it hurts a bit at that spot. He also tells me many stories of speed in cars and riding motorcycles. He gets energized by his stories and forgets about his pain. I provided companionship and prayer and patient responded well showing signs of an elevated mood.
--- NOTE | 2018-11-19 16:01 | NUR ---
PT IS A/OX3, VERY FORGETFULL AT TIMES, THE PT IS PLEASANT AND COOPERATIVE, THE PT IS UP WITH ASSIST, THE PT WAS TITRATED OFF OF OXYGEN SATS ARE IN THE LOW 90'S, THE PT WAS MEDICATED FOR PAIN X1 SO FAR TODAY, THE PT WAS UP TO THE CHAIR FOR MEALS THE PT HAD A LARGE BM PER THE RADIO TOWER TECHNICIAN, MID DAY LACTULOSE WAS HELD, PT SLEPT OFF AND ON T/O THE DAY, CALL LIGHT IN REACH
--- NOTE | 2018-11-20 03:55 | NUR ---
SHIFT SUMMARY PT ADMITTED WITH SBO. FULL CODE. REGULAR DIET. NS AT 125 MLS/HR. SURGICAL HERNIA REPAIR TO R LOWER ABDOMEN WITH DRESSING C/D/I. 18G IV TO R AC. TAKES MEDICATIONS WHOLE. 1 PERSON ASSIST WITH FWW. POSSIBLE DISCHARGE TODAY. THE PT REPORTED HERNIA FOR ABOUT 40 YEARS WITH NEW ONSET OF INCREASING PAIN AND NOW A BOWEL OBSTRUCTION. THE PT LIVES WITH DAUGHTER WHO CARES FOR PT. SBO NOTED OT BE DUE TO INCARCERATED HERNIA. PT NOTED TO BE ABLE TO DISCHARGE AFTER PASSING BM AND NOTED TO HAVE HAD AN EXTRA LARGE BM AT 1321 YESTERDAY AFTERNOON. PT HAS APPEARED TO SLEEP COMFORTABLY MOST OF THE NIGHT WITH NO APPARENT SIGNS OF ACUTE DISTRESS. FREQUENT VISUAL CHECKS IT IS NOT CLEAR IF PT ALWAYS ABLE TO MAKE NEEDS KNOWN DUE TO INTERMITTENT CONFUSION. BED ALARM FOR SAFETY.
[2018-11-20] MEDS ORDERED: DOCU100 PO (09:52)
[2018-11-20] MEDS ORDERED: SENN187 PO (09:53)
[2018-11-20] MEDS ORDERED: ROXICODONE5 MG PO (09:53)
[2018-11-20] MEDS ORDERED: LACT10SY PO (09:53)
--- NOTE | 2018-11-20 15:48 | NUR ---
PT DISCHARGED PT AND FAMILY VERBALIZED UNDERSTANDING OF THE DC INSTRUCTIONS, PRESCRIPTIONS FAXED TO [facility] REQUESTED, THE PT IS ON 1L/MIN OXYGEN VIA NC AT TIME OF DC, THE PT WAS MEDICATED FOR PAIN JUST BEFORE DC, FOLLOW UP APPOINTMENTS WERE SCHEDULED, THE PT WAS TRANSFERED VIA WHEELCHAIR ACCOMPANIED BY THE CLIENT CARE CONSULTANT AND HIS FAMILY, [facility] WAS NOTIFIED OF DC AND TALKED WITH THE PTS DAUGHTER
== END 2018-11-20 15:43 | disposition home health service (06) ==
LOC: ER 04:52 → MEDS 04:53 → ENPENDDIS 11-20 11:08 → MEDS 11-20 14:53
PROVIDERS: Emergency Medicine; Internal Medicine; Surgery; ADMIT Hospitalist
PROC: 0YU50JZ Supplement Right Inguinal Region with Synthetic Substitute, Open Approach (ICD-10-PCS; principal; 2018-11-16 13:00)
DX: K40.30 Unilateral inguinal hernia, with obstruction, without gangrene, not specified as recurrent (principal); K56.609 Unspecified intestinal obstruction, unspecified as to partial versus complete obstruction; R26.9 Unspecified abnormalities of gait and mobility; K59.00 Constipation, unspecified; R09.02 Hypoxemia; I10 Essential (primary) hypertension; K21.9 Gastro-esophageal reflux disease without esophagitis; I25.10 Atherosclerotic heart disease of native coronary artery without angina pectoris; N40.0 Benign prostatic hyperplasia without lower urinary tract symptoms; N17.9 Acute kidney failure, unspecified; F03.90 Unspecified dementia, unspecified severity, without behavioral disturbance, psychotic disturbance, mood disturbance, and anxiety; Z88.0 Allergy status to penicillin; Z79.899 Other long term (current) drug therapy; Z95.1 Presence of aortocoronary bypass graft
CPT/HCPCS: 36415; 74177; 80048; 80053; 80069; 81001; 83690; 83880; 84484; 85025; 85027; 87086; 93005; 93010; 94761; 96374-59; 96376; 97110; 97161; 99285-25; C1781; G0378; J1100; J2405; J2704; J2710; J3010; J7030; J7120; Q9967

== ENCOUNTER 2019-03-27 04:38 | Emergency (ER) | payer OTHER, MEDICARE ==
[~2019-03-27] VITALS: Ht 175.3 cm; Wt 76.2 kg
[~2019-03-27 04:38] MED LIST changes: +ATHLETE'S FOO35.4 GM TOP; +Amlodipine Bes2.5 MG PO; +DOCU100 PO; +LACT10SY PO; +PANT20 PO; +ROXICODONE5 MG PO; +SENN187 PO; +TAMS.4ER PO
[2019-03-27 05:07] LABS: BASOPHILS ABSOLUTE AUTO 0.04 K/mm3 (0.00-0.23); BASOPHILS PERCENT AUTO 1 % (0-2); EOSINOPHILS ABSOLUTE AUTO 0.32 K/mm3 (0.00-0.68); EOSINOPHILS PERCENT AUTO 4 % (0-6); Hematocrit 38.5 % (37.0-53.0); Hemoglobin 11.9 g/dL (13.5-17.5); IMMATURE GRAN ABSOLUTE AUTO 0.04 K/mm3 (0.00-0.10); IMMATURE GRAN PERCENT AUTO 1 % (0-1); LYMPHOCYTES ABSOLUTE AUTO 1.73 K/mm3 (0.84-5.20); LYMPHOCYTES PERCENT AUTO 24 % (21-46); MONOCYTES ABSOLUTE AUTO 0.62 K/mm3 (0.16-1.47); MONOCYTES PERCENT AUTO 8 % (4-13); Mean Corpuscular HGB 25.9 pg (26.0-34.0); Mean Corpuscular HGB Conc 30.9 g/dL (31.5-36.5); Mean Corpuscular Volume 84 fL (80-100); Mean Platelet Volume 9.8 fL (9.1-12.4); NEUTROPHILS ABSOLUTE AUTO 4.62 K/mm3 (1.96-9.15); NEUTROPHILS PERCENT AUTO 63 % (41-73); Platelet Count 228 K/mm3 (150-400); RDW Coefficient Variation 15.5 % (11.7-14.2); RDW Standard Deviation 47.1 fL (35.1-46.3); White Blood Cell Count 7.37 K/mm3 (4.00-11.30)
[2019-03-27 05:21] LABS: Albumin, Blood 3.2 g/dL (3.4-5.0); Albumin/Globulin Ratio 0.8 (0.8-1.8); Bilirubin, Total 0.9 mg/dL (0.1-1.0); Calcium, Blood 9.5 mg/dL (8.5-10.1); Creatinine, Blood 1.33 mg/dL (0.60-1.20); Globulin, Blood 4.1 g/dL (2.2-4.0); Potassium, Blood 3.4 mmol/L (3.5-5.5); Total Protein, Blood 7.3 g/dL (6.4-8.2); Troponin I 0.033 ng/mL (0.000-0.040)
== END 2019-03-27 07:55 | disposition home or self-care (01) ==
LOC: ER 04:38
PROVIDERS: Emergency Medicine
DX: R55 Syncope and collapse (principal); E87.6 Hypokalemia; F03.90 Unspecified dementia, unspecified severity, without behavioral disturbance, psychotic disturbance, mood disturbance, and anxiety; Z63.4 Disappearance and death of family member; Z88.0 Allergy status to penicillin; Z79.899 Other long term (current) drug therapy
CPT/HCPCS: 71046; 80053; 84484; 85025; 93005; 93010; 99284-25

== ENCOUNTER 2020-04-01 20:20 | Inpatient (IN) | payer OTHER, MEDICARE ==
[~2020-04-01] VITALS: Ht 175.3 cm; Wt 84.1 kg
[2020-04-01] MEDS ORDERED: AMLO5 PO (20:39)
[2020-04-01] MEDS ORDERED: Flomax0.4 MG (20:39)
[2020-04-01] MEDS ORDERED: PANT20 (20:40)
[2020-04-01] MEDS ORDERED: LOPERAMIDE2 M3 PO (20:40)
[2020-04-01 20:53] LABS: BASOPHILS ABSOLUTE AUTO 0.06 K/mm3 (0.00-0.23); BASOPHILS PERCENT AUTO 1 % (0-2); EOSINOPHILS ABSOLUTE AUTO 0.17 K/mm3 (0.00-0.68); EOSINOPHILS PERCENT AUTO 2 % (0-6); Hematocrit 42.8 % (37.0-53.0); Hemoglobin 13.2 g/dL (13.5-17.5); IMMATURE GRAN ABSOLUTE AUTO 0.06 K/mm3 (0.00-0.10); IMMATURE GRAN PERCENT AUTO 1 % (0-1); LYMPHOCYTES ABSOLUTE AUTO 1.43 K/mm3 (0.84-5.20); LYMPHOCYTES PERCENT AUTO 16 % (21-46); MONOCYTES ABSOLUTE AUTO 0.63 K/mm3 (0.16-1.47); MONOCYTES PERCENT AUTO 7 % (4-13); Mean Corpuscular HGB 27.7 pg (26.0-34.0); Mean Corpuscular HGB Conc 30.8 g/dL (31.5-36.5); Mean Corpuscular Volume 90 fL (80-100); Mean Platelet Volume 9.8 fL (9.1-12.4); NEUTROPHILS ABSOLUTE AUTO 6.53 K/mm3 (1.96-9.15); NEUTROPHILS PERCENT AUTO 74 % (41-73); Platelet Count 200 K/mm3 (150-400); RDW Coefficient Variation 14.4 % (11.7-14.2); RDW Standard Deviation 47.8 fL (35.1-46.3); Red Blood Cell Count 4.77 M/mm3 (4.30-5.90); White Blood Cell Count 8.88 K/mm3 (4.00-11.30)
[2020-04-01 23:29] LABS: Albumin, Blood 3.3 g/dL (3.4-5.0); Albumin/Globulin Ratio 0.8 (0.8-1.8); Bilirubin, Total 1.1 mg/dL (0.1-1.0); Bun/Creatinine Ratio 9.5 (12.0-20.0); Calcium, Blood 9.3 mg/dL (8.5-10.1); Creatinine, Blood 1.26 mg/dL (0.60-1.20); Globulin, Blood 3.9 g/dL (2.2-4.0); Potassium, Blood 3.6 mmol/L (3.5-5.5); Total Protein, Blood 7.2 g/dL (6.4-8.2)
[2020-04-01 23:43] LABS: International Normalized Ratio 0.96; Prothrombin Time Results 10.3 Sec (9.7-11.5)
[2020-04-02] MEDS ORDERED: AMLO5 PO (02:47)
[2020-04-02] MEDS ORDERED: PANT20 PO (02:47)
[2020-04-02] MEDS ORDERED: DOCU100 PO (02:48)
[2020-04-02] MEDS ORDERED: CONSTULOSE10 GM/15 M PO (02:49)
[2020-04-02] MEDS ORDERED: SENN187 PO (02:49)
[2020-04-02] MEDS ORDERED: TAMS.4ER PO (02:50)
[2020-04-02] MEDS ORDERED: LOPE2C PO (02:50)
[2020-04-02 06:07] LABS: BASOPHILS ABSOLUTE AUTO 0.03 K/mm3 (0.00-0.23); BASOPHILS PERCENT AUTO 0 % (0-2); EOSINOPHILS PERCENT AUTO 0 % (0-6); Hematocrit 42.1 % (37.0-53.0); Hemoglobin 13.4 g/dL (13.5-17.5); IMMATURE GRAN ABSOLUTE AUTO 0.05 K/mm3 (0.00-0.10); IMMATURE GRAN PERCENT AUTO 0 % (0-1); LYMPHOCYTES PERCENT AUTO 10 % (21-46); MONOCYTES ABSOLUTE AUTO 0.77 K/mm3 (0.16-1.47); MONOCYTES PERCENT AUTO 7 % (4-13); Mean Corpuscular HGB 28.5 pg (26.0-34.0); Mean Corpuscular HGB Conc 31.8 g/dL (31.5-36.5); Mean Corpuscular Volume 89 fL (80-100); Mean Platelet Volume 9.9 fL (9.1-12.4); NEUTROPHILS PERCENT AUTO 83 % (41-73); Platelet Count 191 K/mm3 (150-400); RDW Coefficient Variation 14.5 % (11.7-14.2); Red Blood Cell Count 4.71 M/mm3 (4.30-5.90); White Blood Cell Count 11.75 K/mm3 (4.00-11.30)
[2020-04-02 06:29] LABS: Bun/Creatinine Ratio 11.3 (12.0-20.0); Creatinine, Blood 1.24 mg/dL (0.60-1.20)
[2020-04-02 06:30] LABS: Calcium, Blood 9.4 mg/dL (8.5-10.1)
[2020-04-02 10:58] LABS: Influenza A, PCR Negative (NEGATIVE); Influenza B, PCR Negative (NEGATIVE); Resp Syncytial Virus, PCR Negative (NEGATIVE); SARS-Cov-2 (COVID-19) PCR, MMC Negative (NEGATIVE)
[2020-04-03 04:36] LABS: BASOPHILS ABSOLUTE AUTO 0.01 K/mm3 (0.00-0.23); BASOPHILS PERCENT AUTO 0 % (0-2); EOSINOPHILS PERCENT AUTO 0 % (0-6); Hematocrit 32.3 % (37.0-53.0); Hemoglobin 10.3 g/dL (13.5-17.5); IMMATURE GRAN ABSOLUTE AUTO 0.03 K/mm3 (0.00-0.10); IMMATURE GRAN PERCENT AUTO 0 % (0-1); LYMPHOCYTES PERCENT AUTO 6 % (21-46); MONOCYTES ABSOLUTE AUTO 0.65 K/mm3 (0.16-1.47); MONOCYTES PERCENT AUTO 7 % (4-13); Mean Corpuscular HGB 28.9 pg (26.0-34.0); Mean Corpuscular HGB Conc 31.9 g/dL (31.5-36.5); Mean Corpuscular Volume 91 fL (80-100); Mean Platelet Volume 10.3 fL (9.1-12.4); NEUTROPHILS ABSOLUTE AUTO 8.23 K/mm3 (1.96-9.15); NEUTROPHILS PERCENT AUTO 87 % (41-73); Platelet Count 143 K/mm3 (150-400); RDW Coefficient Variation 14.5 % (11.7-14.2); RDW Standard Deviation 48.3 fL (35.1-46.3); Red Blood Cell Count 3.57 M/mm3 (4.30-5.90); White Blood Cell Count 9.52 K/mm3 (4.00-11.30)
[2020-04-03 04:54] LABS: Bun/Creatinine Ratio 16.1 (12.0-20.0); Calcium, Blood 8.6 mg/dL (8.5-10.1); Creatinine, Blood 1.37 mg/dL (0.60-1.20); Magnesium, Blood 2.2 mg/dL (1.6-2.4); Potassium, Blood 4.6 mmol/L (3.5-5.5)
[2020-04-07 04:47] LABS: Hematocrit 28.1 % (37.0-53.0); Mean Corpuscular HGB 28.7 pg (26.0-34.0); Mean Corpuscular Volume 90 fL (80-100); Mean Platelet Volume 10.1 fL (9.1-12.4); Platelet Count 182 K/mm3 (150-400); RDW Coefficient Variation 14.6 % (11.7-14.2); RDW Standard Deviation 47.6 fL (35.1-46.3); Red Blood Cell Count 3.14 M/mm3 (4.30-5.90); White Blood Cell Count 5.97 K/mm3 (4.00-11.30)
[2020-04-07 05:07] LABS: Albumin, Blood 2.3 g/dL (3.4-5.0); Anion Gap 4 mmol/L (6-16); Blood Urea Nitrogen 26 mg/dL (8-24); Bun/Creatinine Ratio 21.8 (12.0-20.0); CO2, Blood 29 mmol/L (21-32); Calcium, Blood 8.9 mg/dL (8.5-10.1); Chloride, Blood 105 mmol/L (98-108); Creatinine, Blood 1.19 mg/dL (0.60-1.20); Glomerular Filtration Rate >60 (60-); Glucose, Blood 108 mg/dL (70-99); Phosphorus, Blood 2.6 mg/dL (2.5-4.9); Potassium, Blood 4.3 mmol/L (3.5-5.5); Sodium, Blood 138 mmol/L (136-145)
[2020-04-08 11:19] LABS: Influenza A, PCR Negative (NEGATIVE); Influenza B, PCR Negative (NEGATIVE); Resp Syncytial Virus, PCR Negative (NEGATIVE); SARS-Cov-2 (COVID-19) PCR, MMC Negative (NEGATIVE)
== END 2020-04-08 14:49 | DRG 464 ==
LOC: ER 20:20 → SURS 04-02 00:09
PROVIDERS: Emergency Medicine; Internal Medicine; Orthopaedic Surgery; ADMIT Internal Medicine
PROC: 0HQ0XZZ Repair Scalp Skin, External Approach (ICD-10-PCS; 2020-04-02)
PROC: 0QS634Z Reposition Right Upper Femur with Internal Fixation Device, Percutaneous Approach (ICD-10-PCS; principal; 2020-04-02 13:50)
PROC: 0SP90JZ Removal of Synthetic Substitute from Right Hip Joint, Open Approach (ICD-10-PCS; 2020-04-02 13:50)
DX: S72.041A Displaced fracture of base of neck of right femur, initial encounter for closed fracture (principal); I13.0 Hypertensive heart and chronic kidney disease with heart failure and stage 1 through stage 4 chronic kidney disease, or unspecified chronic kidney disease; I50.42 Chronic combined systolic (congestive) and diastolic (congestive) heart failure; M97.01XA Periprosthetic fracture around internal prosthetic right hip joint, initial encounter; E78.5 Hyperlipidemia, unspecified; J44.9 Chronic obstructive pulmonary disease, unspecified; F03.90 Unspecified dementia, unspecified severity, without behavioral disturbance, psychotic disturbance, mood disturbance, and anxiety; D63.8 Anemia in other chronic diseases classified elsewhere; N18.30 Chronic kidney disease, stage 3 unspecified; I25.10 Atherosclerotic heart disease of native coronary artery without angina pectoris; Z95.1 Presence of aortocoronary bypass graft; Z87.891 Personal history of nicotine dependence; W19.XXXA Unspecified fall, initial encounter; S01.01XA Laceration without foreign body of scalp, initial encounter; N40.0 Benign prostatic hyperplasia without lower urinary tract symptoms; Z99.81 Dependence on supplemental oxygen
CPT/HCPCS: 0241U; 12001; 36415; 70450; 71045; 72125; 73502; 73552; 73700; 80048; 80053; 80069; 83735; 85025; 85027; 85610; 93005; 93010; 96374-59; 97110; 97162; 97166; 97530; 99285-25; A9270; C1713; J0360; J1100; J1650; J1885; J2370; J2405; J2704; J3010; J3370; J7050

== ENCOUNTER 2021-01-17 19:14 | Emergency (ER) | payer OTHER ==
[~2021-01-17] VITALS: Ht 175.3 cm; Wt 72.6 kg
[~2021-01-17 19:14] MED LIST changes: +AMLO5 PO; +CONSTULOSE10 GM/15 M PO; +Flomax0.4 MG; +LOPE2C PO; +LOPERAMIDE2 M3 PO; +PANT20
[2021-01-17 20:06] LABS: Troponin I 0.024 ng/mL (0.000-0.040)
[2021-01-17 20:17] LABS: BASOPHILS ABSOLUTE AUTO 0.02 K/mm3 (0.00-0.23); BASOPHILS PERCENT AUTO 0 % (0-2); EOSINOPHILS ABSOLUTE AUTO 0.02 K/mm3 (0.00-0.68); EOSINOPHILS PERCENT AUTO 0 % (0-6); Hematocrit 43.7 % (37.0-53.0); Hemoglobin 14.5 g/dL (13.5-17.5); IMMATURE GRAN ABSOLUTE AUTO 0.03 K/mm3 (0.00-0.10); IMMATURE GRAN PERCENT AUTO 1 % (0-1); LYMPHOCYTES ABSOLUTE AUTO 1.25 K/mm3 (0.84-5.20); LYMPHOCYTES PERCENT AUTO 25 % (21-46); MONOCYTES ABSOLUTE AUTO 0.52 K/mm3 (0.16-1.47); MONOCYTES PERCENT AUTO 10 % (4-13); Mean Corpuscular HGB 30.4 pg (26.0-34.0); Mean Corpuscular HGB Conc 33.2 g/dL (31.5-36.5); Mean Corpuscular Volume 92 fL (80-100); Mean Platelet Volume 10.3 fL (9.1-12.4); NEUTROPHILS ABSOLUTE AUTO 3.25 K/mm3 (1.96-9.15); NEUTROPHILS PERCENT AUTO 64 % (41-73); Platelet Count 127 K/mm3 (150-400); RDW Coefficient Variation 13.2 % (11.7-14.2); Red Blood Cell Count 4.77 M/mm3 (4.30-5.90); White Blood Cell Count 5.09 K/mm3 (4.00-11.30)
[2021-01-17 20:21] LABS: Alanine Aminotransfer (ALT/SGP 48 U/L (12-78); Albumin, Blood 2.7 g/dL (3.4-5.0); Albumin/Globulin Ratio 0.6 (0.8-1.8); Alk Phos 97 U/L (50-136); Anion Gap 4 mmol/L (6-16); Aspartate Aminotrans (AST/SGOT 57 U/L (12-37); Bilirubin, Total 1.3 mg/dL (0.1-1.0); Blood Urea Nitrogen 21 mg/dL (8-24); CO2, Blood 29 mmol/L (21-32); Calcium, Blood 9.8 mg/dL (8.5-10.1); Chloride, Blood 104 mmol/L (98-108); Creatinine, Blood 0.88 mg/dL (0.60-1.20); Globulin, Blood 4.5 g/dL (2.2-4.0); Glomerular Filtration Rate >60 (60-); Glucose, Blood 90 mg/dL (70-99); Potassium, Blood 4.4 mmol/L (3.5-5.5); Sodium, Blood 137 mmol/L (136-145); Total Protein, Blood 7.2 g/dL (6.4-8.2)
[2021-01-17 20:25] LABS: Influenza A, PCR NEGATIVE (NEGATIVE); Influenza B, PCR NEGATIVE (NEGATIVE); Resp Syncytial Virus, PCR NEGATIVE (NEGATIVE)
[2021-01-17 20:32] LABS: SARS-Cov-2 (COVID-19) PCR, MMC POSITIVE (NEGATIVE)
== END 2021-01-17 22:20 | disposition home or self-care (01) ==
LOC: ER 19:14
PROVIDERS: Emergency Medicine
DX: U07.1 COVID-19 (principal); E78.5 Hyperlipidemia, unspecified; I25.10 Atherosclerotic heart disease of native coronary artery without angina pectoris; I13.0 Hypertensive heart and chronic kidney disease with heart failure and stage 1 through stage 4 chronic kidney disease, or unspecified chronic kidney disease; I50.42 Chronic combined systolic (congestive) and diastolic (congestive) heart failure; I48.91 Unspecified atrial fibrillation; N18.30 Chronic kidney disease, stage 3 unspecified; N40.0 Benign prostatic hyperplasia without lower urinary tract symptoms; F03.90 Unspecified dementia, unspecified severity, without behavioral disturbance, psychotic disturbance, mood disturbance, and anxiety; Z87.891 Personal history of nicotine dependence; Z88.0 Allergy status to penicillin; Z88.1 Allergy status to other antibiotic agents; Z79.899 Other long term (current) drug therapy
CPT/HCPCS: 0241U; 71045; 80053; 84484; 85025; 93005; 93010; 99285-25